=== PATIENT | female | born 1930 | race African-American/Black ===

== ENCOUNTER 2016-09-07 13:12 | Inpatient (IN) | payer OTHER ==
[2016-09-07 13:23] VITALS: BMI 21.7
--- NOTE | 2016-09-07 13:49 | PDOC ---
History of Present Illness <Abdoul Hernandez - Last Filed: 09/07/16 16:36> - General History Source: Patient Exam Limitations: No Limitations - History of Present Illness Initial Comments: 09/07/16 14:16 The patient is a 86 year old female with a significant past medical history of Anemia, Dementia, Diabetes, Constipation, HTN, HLD, Schizophrenia, who presents to the ED via EMS from [facility] s/p fall. Patient states she fell on her left hip and thinks it is broken. Patient denies loss of consciousness. Patient denies head trauma, back pain trauma, neck trauma. Patient denies fever, chills, nausea, vomiting, diarrhea. Patient is otherwise healthy and has no other complaints. <Anthony Vickers - Last Filed: 09/07/16 17:06> - General Chief Complaint: Injury Stated Complaint: FALL Past History - Past Medical History Anemia: Yes Dementia: Yes Diabetes: Yes GI Disorders: Yes (CONSTIPATION.) HTN: Yes Hypercholesterolemia: Yes Psychiatric Problems: Yes (SCHIZOPHRENIA.) Other medical history: DERMATITIS. - Psycho/Social/Smoking Cessation Hx Anxiety: No Suicidal Ideation: No Smoking Status: Yes Smoking History: Never smoked Have you smoked in the past 12 months: Yes Number of Cigarettes Smoked Daily: 0 'Breaking Loose' booklet given: 04/21/12 Hx Alcohol Use: No Drug/Substance Use Hx: No Substance Use Type: None <Abdoul Hernandez - Last Filed: 09/07/16 16:36> <Anthony Vickers - Last Filed: 09/07/16 17:06> - Past Medical History Allergies/Adverse Reactions: Allergies Allergy/AdvReac Type Severity Reaction Status Date / Time divalproex sodium Allergy Verified 09/07/16 13:15 [From [facility]] Home Medications: Ambulatory Orders Acetaminophen 650 mg PO Q6H PRN 09/07/16 Clonidine HCl [Clonidine HCl ER] 0.1 mg PO BID 09/07/16 Clopidogrel Bisulfate [Plavix -] 75 mg PO DAILY 09/07/16 Enalapril Maleate [Vasotec] 10 mg PO BID 09/07/16 Glipizide [Glucotrol Xl] 10 mg PO DAILY 09/07/16 Guaifenesin [Anne-Tussin] 200 mg PO Q4H PRN 09/07/16 Haloperidol [Haldol -] 5 mg PO BID 09/07/16 Insulin Regular, Human [Humulin R U-500 Kwikpen] 0 unit SQ QID 09/07/16 Magnesium Hydrox 2400MG/30Ml [Milk of Magnesia -] 30 ml PO PRN PRN 09/07/16 Metformin HCl [Metformin HCl ER] 1,000 mg PO BID 09/07/16 Multivitamin-Min/Iron/FA/Vit K [Multi-Day Plus Minerals Tablet] 1 each PO DAILY 09/07/16 Na Phos,M-B/Na Phos,Di-Ba [Fleet Enema] 133 ml RC PRN PRN 09/07/16 Petrolatum,White/Lanolin [Vitamin A & D Ointment] 454 gm TP TID 09/07/16 Quetiapine Fumarate [Seroquel -] 25 mg PO TID 09/07/16 Sennosides/Docusate Sodium [Senna Laxative Tablet] 2 each PO DAILY 09/07/16 Sertraline HCl [Zoloft] 25 mg PO DAILY 09/07/16 Simvastatin [Zocor -] 20 mg PO HS 09/07/16 Trihexyphenidyl HCl 2 mg PO DAILY 09/07/16 Review of Systems - Review of Systems Able to Perform ROS?: Yes Comments:: 09/07/16 14:16 GENERAL/CONSTITUTIONAL: No fever or chills. No weakness. HEAD, EYES, EARS, NOSE AND THROAT: No change in vision. No ear pain or discharge. No sore throat. CARDIOVASCULAR: No chest pain or shortness of breath. RESPIRATORY: No cough, wheezing, or hemoptysis. GASTROINTESTINAL: + LLQ pain. + nausea + vomiting. No diarrhea or constipation. GENITOURINARY: No dysuria, frequency, or change in urination. MUSCULOSKELETAL: No joint or muscle swelling or pain. No neck or back pain. SKIN: No rash NEUROLOGIC: No headache, vertigo, loss of consciousness, or change in strength/ sensation. ENDOCRINE: No increased thirst. No abnormal weight change. HEMATOLOGIC/LYMPHATIC: No anemia, easy bleeding, or history of blood clots. ALLERGIC/IMMUNOLOGIC: No hives or skin allergy. <Anthony Vickers - Last Filed: 09/07/16 17:06> *Physical Exam - Vital Signs Last Vital Signs Temp Pulse Resp BP Pulse Ox 97.6 F 88 18 140/61 98 09/07/16 13:15 09/07/16 13:15 09/07/16 13:15 09/07/16 13:15 09/07/16 13:15 <Abdoul Hernandez - Last Filed: 09/07/16 16:36> - Vital Signs Last Vital Signs Temp Pulse Resp BP Pulse Ox 97.6 F 88 18 140/61 98 09/07/16 13:15 09/07/16 13:15 09/07/16 13:15 09/07/16 13:15 09/07/16 13:15 - Physical Exam Comments: 09/07/16 14:17 GENERAL: Frail and elderly. She doesn't want to have surgery. Awake, alert, and fully oriented, in no acute distress. HEAD: No signs of trauma EYES: PERRLA, EOMI, sclera anicteric, conjunctiva clear ENT: Auricles normal inspection, hearing grossly normal, nares patent, oropharynx clear without exudates. Moist mucosa NECK: Normal ROM, supple, no lymphadenopathy, JVD, or masses LUNGS: Breath sounds equal, clear to auscultation bilaterally. No wheezes, and no crackles HEART: Regular rate and rhythm, normal S1 and S2, no murmurs, rubs or gallops ABDOMEN: Soft, nontender, normoactive bowel sounds. No guarding, no rebound. No masses HIP: Shortened externally rotated left hip. Pain with range of motion with left hip. EXTREMITIES: Normal range of motion, no edema. No clubbing or cyanosis. No cords, erythema, or tenderness NEUROLOGICAL: Cranial nerves II through XII grossly intact. Normal speech, normal gait SKIN: Warm, Dry, normal turgor, no rashes or lesions noted. <Anthony Vickers - Last Filed: 09/07/16 17:06> Heart Score/ECG Review - ECG Intrepretation Comment:: 09/07/16 13:54 Normal Sinus Rhythm with sinus arrhythmia, 77 bpm. Left axis deviation. Minimal voltage criteria for LVH, may be normal variant. Abnormal ECG. <Anthony Vickers - Last Filed: 09/07/16 17:06> ED Treatment Course - LABORATORY CBC & Chemistry Diagram: 09/07/16 14:07 09/07/16 14:07 <Abdoul Hernandez - Last Filed: 09/07/16 16:36> - LABORATORY CBC & Chemistry Diagram: 09/07/16 14:07 09/07/16 14:07 - RADIOLOGY Radiology Studies Ordered: 09/07/16 17:05 EXAM: CT of the brain without contrast HISTORY:Trauma. Previous cerebral vascular accident COMPARISON: None. FINDINGS:Serial transaxial images of the brain are available without intravenous contrast agent. Sagittal and coronal reformatted imaging is available. There is generalized moderately severe cortical atrophy with diffuse areas of decreased attenuation surrounding mildly prominent lateral ventricles most consistent with chronic small vessel disease. There is no midline shift or mass effect or acute hemorrhage. No abnormal fluid collections are seen. The mastoid air cells are well-aerated. Visible portions of the paranasal sinuses are well-aerated. The calvarium appears intact IMPRESSION: Findings of extensive chronic parenchymal changes in the brain THIS DOCUMENT HAS BEEN ELECTRONICALLY SIGNED Joey Freeman MD 09/07/2016 16:15 EST <Anthony Vickers - Last Filed: 09/07/16 17:06> Medical Decision Making - Medical Decision Making 09/07/16 17:[address] Rogel. Discussed case with Dr. Saravia. <Anthony Vickers - Last Filed: 09/07/16 17:06> *DC/Admit/Observation/Transfer - Discharge Dispostion Admit: Yes - Attestations Physician Attestion: 09/07/16 13:49 I, Dr. Abdoul Hernandez, attest that this document has been prepared under my direction and personally reviewed by me in its entirety. I further attest, that it accurately reflects all work, treatment, procedures and medical decision -making performed by me. <Abdoul Hernandez - Last Filed: 09/07/16 16:36> - Attestations Scribe Attestion: 09/07/16 14:24 Documentation prepared by Anthony Vickers, acting as medical equipment repair technician for Abdoul Hernandez MD/DO. <Anthony Vickers - Last Filed: 09/07/16 17:06> Diagnosis at time of Disposition: Renal insufficiency syndrome Intertrochanteric fracture of left hip Qualifiers: Encounter type: initial encounter Fracture type: closed Fracture alignment: nondisplaced Qualified Code(s): S72.145A - Nondisplaced intertrochanteric fracture of left femur, initial encounter for closed fracture CHF (congestive heart failure) Qualifiers: Congestive heart failure type: unspecified congestive heart failure type Congestive heart failure chronicity: chronic Qualified Code(s): I50.9 - Heart failure, unspecified - Discharge Dispostion Condition at time of disposition: Improved
[2016-09-07] MEDS ORDERED: morphine CARPU-JECT 4 MG/1 ML DISP.SYRIN IVPUSH ONE (13:52)
[2016-09-07] MEDS ORDERED: ONDANSETRON 4 MG/2 ML VIAL IVPUSH ONE (13:52)
[2016-09-07 14:33] LABS: BASOPHIL 0.9 % (0-2.0); EOSINOPHIL 3.7 % (0-4.5); MCH 20.8 pg (25.7-33.7); MCHC 30.9 g/dl (32.0-36.0); MEAN CELL VOLUME 67.1 fl (80-96); MEAN PLT VOLUME 9.7 fl (7.5-11.1); NEUTROPHILS 72.5 % (42.8-82.8); PLATELET COUNT 181 K/MM3 (134-434); RDW 16.5 % (11.6-15.6); WHITE BLOOD COUNT 5.3 K/mm3 (4.0-10.0)
[2016-09-07 14:45] LABS: INR 1.04 (0.82-1.09); PROTHROMBIN TIME (PATIENT) 11.5 SEC (9.98-11.88)
[2016-09-07 14:56] LABS: ALBUMIN 3.2 g/dl (3.4-5.0); ANION GAP 7 (8-16); BILIRUBIN,TOTAL 0.2 mg/dL (0.2-1.0); CO2 32 mmol/L (21-32); CREATININE 1.7 mg/dL (0.55-1.02); GLUCOSE,RANDOM 176 mg/dL (74-106); SGPT/ALT 16 U/L (12-78); TOT PROT 6.4 g/dl (6.4-8.2)
[2016-09-07 14:58] LABS: ALK PHOS 100 U/L (45-117); CPK 100 IU/L (26-192); TROPONIN I < 0.02 ng/ml (0.00-0.05)
[2016-09-07 15:01] LABS: SGOT/AST 23 U/L (15-37)
[2016-09-07 15:05] LABS: FRAGMENTED CELL 2+; HYPOCHROMIA 2+; MICROCYTOSIS 1+
--- NOTE | 2016-09-07 16:11 | EKG ---
Test Reason : Blood Pressure : / mmHG Vent. Rate : 077 BPM Atrial Rate : 077 BPM P-R Int : 146 ms QRS Dur : 082 ms QT Int : 402 ms P-R-T Axes : 038 -50 014 degrees QTc Int : 454 ms SINUS RHYTHM WITH SINUS ARRTHYMIA VS APCs. 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 Confirmed by JENNI CAMPBELL MD ([id number]) on 09/07/2016 4:11:29 PM Referred By: Confirmed By:JENNI CAMPBELL MD
[2016-09-07] MEDS ORDERED: ACETAMINOPHEN 325 MG TABLET (FP) PO PRN (16:57)
[2016-09-07] MEDS ORDERED: SODIUM CHLORIDE 0.45% 1,000 ML IV SCH (17:00)
[2016-09-07] MEDS: ATORVASTATIN CA 10 MG TABLET (FP) PO SCH (23:14)
[2016-09-07] MEDS: cloNIDine HCL 0.1 MG TABLET PO SCH (23:14)
[2016-09-07] MEDS: QUEtiapine FUMARATE 25 MG TABLET (FP) PO SCH (23:14)
[2016-09-07] MEDS ORDERED: cefTRIAXone SODIUM 1 GM VIAL ONE (23:18)
[2016-09-07] MEDS ORDERED: DEXTROSE 5%-WATER - 50 ML IVPB ONE (23:18)
[2016-09-07] MEDS: CEFTRIAXONE 1 GM in DEXTROSE 5%-WATER - 50 ML IVPB SCH (23:19)
[2016-09-07] MEDS: HALOPERIDOL 5 MG TABLET (FP) PO SCH (23:22)
[2016-09-07 23:52] LABS: URINE APPEARANCE CLEAR; URINE BILIRUBIN NEGATIVE (NEGATIVE); URINE BLOOD NEGATIVE (NEGATIVE); URINE COLOR YELLOW; URINE GLUCOSE (UA) NEGATIVE (NEGATIVE); URINE KETONE TRACE (NEGATIVE); URINE LEUK ESTERASE NEGATIVE (NEGATIVE); URINE NITRITE NEGATIVE (NEGATIVE); URINE UROBILINOGEN NEGATIVE mg/dL (0.2-1.0)
[2016-09-07 23:54] LABS: URINE PROTEIN 2+ (NEGATIVE)
[2016-09-07 23:58] LABS: URINE BACTERIA RARE /hpf (NONE SEEN); URINE HYALINE CAST 3 /lpf; URINE MUCUS RARE; URINE RBC 1 /hpf (0-3); URINE WBC 1 /hpf (3-5)
[2016-09-08] MEDS: oxyCODONE HCL 5 MG TABLET PO PRN ×2 (02:39→23:10)
[2016-09-08] MEDS: INSULIN SLIDING SCALE (NOVOLOG) 1 VIAL SQ SCH ×3 (06:35→17:29)
[2016-09-08] MEDS: QUEtiapine FUMARATE 25 MG TABLET (FP) PO SCH ×3 (06:35→21:09)
[2016-09-08 08:13] LABS: BASOPHIL 0.6 % (0-2.0); EOSINOPHIL 0.1 % (0-4.5); MCH 20.8 pg (25.7-33.7); MCHC 31.6 g/dl (32.0-36.0); MEAN CELL VOLUME 65.8 fl (80-96); MEAN PLT VOLUME 9.9 fl (7.5-11.1); PLATELET COUNT 140 K/MM3 (134-434); RDW 16.4 % (11.6-15.6); WHITE BLOOD COUNT 7.6 K/mm3 (4.0-10.0)
[2016-09-08 08:39] LABS: ALBUMIN 2.8 g/dl (3.4-5.0); ANION GAP 9 (8-16); BILIRUBIN,TOTAL 0.3 mg/dL (0.2-1.0); CALCIUM 8.2 mg/dL (8.5-10.1); CO2 29 mmol/L (21-32); CREATININE 1.9 mg/dL (0.55-1.02); GLUCOSE,RANDOM 144 mg/dL (74-106); SGPT/ALT 15 U/L (12-78); TOT PROT 5.2 g/dl (6.4-8.2)
[2016-09-08 08:40] LABS: ALK PHOS 73 U/L (45-117); SGOT/AST 19 U/L (15-37)
--- NOTE | 2016-09-08 09:08 | CON.ORTH ---
Consult Reason for Consultation:: left hip fx - Past Medical History ...: No - Alcohol/Substance Use Hx Alcohol Use: No - Smoking History Smoking history: Never smoked Have you smoked in the past 12 months: No Aproximately how many cigarettes per day: 0 Home Medications - Allergies Allergies/Adverse Reactions: Allergies Allergy/AdvReac Type Severity Reaction Status Date / Time divalproex sodium Allergy Verified 09/07/16 13:15 [From Depakote] - Home Medications Home Medications: Ambulatory Orders Acetaminophen 650 mg PO Q6H PRN 09/07/16 Clonidine HCl [Clonidine HCl ER] 0.1 mg PO BID 09/07/16 Clopidogrel Bisulfate [Plavix -] 75 mg PO DAILY 09/07/16 Enalapril Maleate [Vasotec] 10 mg PO BID 09/07/16 Glipizide [Glucotrol Xl] 10 mg PO DAILY 09/07/16 Guaifenesin [Anne-Tussin] 200 mg PO Q4H PRN 09/07/16 Haloperidol [Haldol -] 5 mg PO BID 09/07/16 Insulin Regular, Human [Humulin R U-500 Kwikpen] 0 unit SQ QID 09/07/16 Metformin HCl [Metformin HCl ER] 1,000 mg PO BID 09/07/16 Multivitamin-Min/Iron/FA/Vit K [Multi-Day Plus Minerals Tablet] 1 each PO DAILY 09/07/16 Na Phos,M-B/Na Phos,Di-Ba [Fleet Enema] 133 ml RC PRN PRN 09/07/16 Petrolatum,White/Lanolin [Vitamin A & D Ointment] 454 gm TP TID 09/07/16 Quetiapine Fumarate [Seroquel -] 25 mg PO TID 09/07/16 Sennosides/Docusate Sodium [Senna Laxative Tablet] 2 each PO DAILY 09/07/16 Sertraline HCl [Zoloft] 25 mg PO DAILY 09/07/16 Simvastatin [Zocor -] 20 mg PO HS 09/07/16 Trihexyphenidyl HCl 2 mg PO DAILY 09/07/16 Physical Exam for Ortho Vital Signs: Vital Signs Temperature 98.2 F 09/08/16 06:31 Pulse Rate 77 09/08/16 06:31 Respiratory Rate 18 09/08/16 06:31 Blood Pressure 124/70 09/08/16 06:31 O2 Sat by Pulse Oximetry (%) 98 09/08/16 02:32 Labs: CBC, BMP 09/08/16 06:40 09/08/16 06:40 INR, PTT INR 1.04 (0.82-1.09) 09/07/16 14:07 - Lower Extremity Hip: Yes: Left, Decreased ROM, Leg Externally Rotated, Leg Shortened, Pain, Swelling, Other (nvi) Imaging - Results X-ray: Report Reviewed, Image Reviewed Assessment/Plan 86 year old female with a significant past medical history of Anemia, Dementia, Diabetes, Constipation, HTN, HLD, Schizophrenia, who presents to the ED via EMS from [facility] s/p fall. a/p- left IT fx 2 units of PRBCs OR for left IM gamma nail once cleared surgical clearance NPO d/w Dr. Rogel
[2016-09-08] MEDS ORDERED: PT OWN MED DRAWER 7, Y5N ONE ×2 (09:48→14:31)
[2016-09-08] MEDS: cloNIDine HCL 0.1 MG TABLET PO SCH ×2 (09:56→21:09)
[2016-09-08] MEDS: SENNOSIDES/DOCUSATE COMBO (SENNA PLUS) TABLET (UD) PO SCH (09:56)
[2016-09-08] MEDS: SERTRALINE HCL 25 MG TABLET (FP) PO SCH (09:57)
--- NOTE | 2016-09-08 10:21 | HP ---
Admitting History and Physical - Primary Care Physician PCP: Selvin Lundy E - Admission Chief Complaint: s/p fall History of Present Illness: The patient is a 86 year old female with a significant past medical history of Anemia, Dementia, Diabetes, Constipation, HTN, HLD, Schizophrenia, who presents to the ED via EMS from [facility] s/p fall. Patient states she fell -- mechanical.- says she tripped pt found to have left hip fracture. pt is currently npo- scheduled for or later today. pt dropped h/h today-- transfusion ordered by ortho. Pt seen/ examined. chart reviewed. pt comfortable. answers simple questions. discussed with intermediate and pts pmd in intermediate. Pt has no family Patient denies loss of consciousness. Patient denies head trauma, back pain trauma, neck trauma. Patient denies fever, chills, nausea, vomiting, diarrhea. 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: Dementia Cardiovascular: Yes: HTN Renal/: Yes: Renal Inusuff ...: No Psych: Yes: Schizophrenia Endocrine: Yes: Diabetes Mellitus - Smoking History Smoking history: Never smoked Have you smoked in the past 12 months: No Aproximately how many cigarettes per day: 0 - Alcohol/Substance Use Hx Alcohol Use: No Home Medications - Allergies Allergies/Adverse Reactions: Allergies Allergy/AdvReac Type Severity Reaction Status Date / Time divalproex sodium Allergy Verified 09/07/16 13:15 [facility] - Home Medications Home Medications: Ambulatory Orders Acetaminophen 650 mg PO Q6H PRN 09/07/16 Clonidine HCl [Clonidine HCl ER] 0.1 mg PO BID 09/07/16 Clopidogrel Bisulfate [Plavix -] 75 mg PO DAILY 09/07/16 Enalapril Maleate [Vasotec] 10 mg PO BID 09/07/16 Glipizide [Glucotrol Xl] 10 mg PO DAILY 09/07/16 Guaifenesin [Anne-Tussin] 200 mg PO Q4H PRN 09/07/16 Haloperidol [Haldol -] 5 mg PO BID 09/07/16 Insulin Regular, Human [Humulin R U-500 Kwikpen] 0 unit SQ QID 09/07/16 Metformin HCl [Metformin HCl ER] 1,000 mg PO BID 09/07/16 Multivitamin-Min/Iron/FA/Vit K [Multi-Day Plus Minerals Tablet] 1 each PO DAILY 09/07/16 Na Phos,M-B/Na Phos,Di-Ba [Fleet Enema] 133 ml RC PRN PRN 09/07/16 Petrolatum,White/Lanolin [Vitamin A & D Ointment] 454 gm TP TID 09/07/16 Quetiapine Fumarate [Seroquel -] 25 mg PO TID 09/07/16 Sennosides/Docusate Sodium [Senna Laxative Tablet] 2 each PO DAILY 09/07/16 Sertraline HCl [Zoloft] 25 mg PO DAILY 09/07/16 Simvastatin [Zocor -] 20 mg PO HS 09/07/16 Trihexyphenidyl HCl 2 mg PO DAILY 09/07/16 Review of Systems Unable to obtain ROS, reason: see salamatof Physical Examination Vital Signs: Vital Signs Temperature 98.2 F 09/08/16 06:31 Pulse Rate 77 09/08/16 06:31 Respiratory Rate 18 09/08/16 06:31 Blood Pressure 124/70 09/08/16 06:31 O2 Sat by Pulse Oximetry (%) 98 09/08/16 02:32 Constitutional: Yes: No Distress, Calm Eyes: Yes: Conjunctiva Clear Neck: Yes: Supple, Trachea Midline Cardiovascular: Yes: Regular Rate and Rhythm Respiratory: Yes: CTA Bilaterally Gastrointestinal: Yes: Normal Bowel Sounds, Soft Edema: No Neurological: Yes: Alert Psychiatric: Yes: Alert Labs: CBC, BMP 09/08/16 06:40 09/08/16 06:40 Imaging - Results Chest X-ray: Report Reviewed X-ray: Report Reviewed EKG: Report Reviewed Problem List - Problems (1) Intertrochanteric fracture of left hip Code(s): S72.142A - DISPLACED INTERTROCHANTERIC FRACTURE OF LEFT FEMUR, INIT Qualifiers: Encounter type: initial encounter Fracture type: closed Fracture alignment: nondisplaced Qualified Code(s): S72.145A - Nondisplaced intertrochanteric fracture of left femur, initial encounter for closed fracture (2) Schizophrenia Code(s): F20.9 - SCHIZOPHRENIA, UNSPECIFIED (3) Diabetes Code(s): E11.9 - TYPE 2 DIABETES MELLITUS WITHOUT COMPLICATIONS (4) Chronic renal insufficiency, stage III (moderate) Code(s): N18.3 - CHRONIC KIDNEY DISEASE, STAGE 3 (MODERATE) (5) Anemia requiring transfusions Code(s): D64.9 - ANEMIA, UNSPECIFIED (6) Dementia Code(s): F03.90 - UNSPECIFIED DEMENTIA WITHOUT BEHAVIORAL DISTURBANCE (7) Coronary artery disease Code(s): I25.10 - ATHSCL HEART DISEASE OF [place] CORONARY ARTERY W/O ANG PCTRS Assessment/Plan transfuse. hold diabetic meds iv fluids- monitor bgm. hold chrissy- worsening renal insufficiency ortho on case post transfusion cbc. anticipate to or later today. medically stable for emergency procedure- moderate risk-- after transfusion. desmond for allan-operative management. will follow. discussed with nursing staff also.
[2016-09-08] MEDS: DEXTROSE 5%-0.45% SALINE 1,000 ML IV SCH ×2 (10:29→21:10)
[2016-09-08] MEDS ORDERED: FUROSEMIDE 40 MG/4 ML INJECTABLE VIAL IVPUSH SCH (14:15)
[2016-09-08] MEDS: TRIHEXYPHENIDYL HCL 2 MG TABLET PO SCH (14:27)
[2016-09-08] MEDS: HALOPERIDOL 5 MG TABLET (FP) PO SCH ×2 (14:27→21:09)
--- NOTE | 2016-09-08 17:43 | EKG ---
Test Reason : Blood Pressure : / mmHG Vent. Rate : 081 BPM Atrial Rate : 081 BPM P-R Int : 140 ms QRS Dur : 082 ms QT Int : 388 ms P-R-T Axes : -20 -40 -11 degrees QTc Int : 450 ms NORMAL SINUS RHYTHM WITH SINUS ARRHYTHMIA LEFT AXIS DEVIATION ABNORMAL ECG WHEN COMPARED WITH ECG OF 07-SEP-2016 13:43, T WAVE VARIATION Confirmed by JERAYM YOO MD ([id number]) on 09/08/2016 5:42:45 PM Referred By: Confirmed By:JERAMY YOO MD
[2016-09-08] MEDS ORDERED: INSULIN (NOVOLOG) ASPART 100 UNITS/ML 10ML VIAL ONE (17:54)
[2016-09-08] MEDS ORDERED: DEXTROSE 5%-WATER - 50 ML IVPB ONE (20:12)
[2016-09-08] MEDS ORDERED: cefTRIAXone SODIUM 1 GM VIAL ONE (20:12)
[2016-09-08] MEDS: ATORVASTATIN CA 10 MG TABLET (FP) PO SCH (21:09)
[2016-09-08] MEDS: CEFTRIAXONE 1 GM in DEXTROSE 5%-WATER - 50 ML IVPB SCH (21:09)
[2016-09-09 05:30] LABS: MCH 22.7 pg (25.7-33.7); MCHC 32.2 g/dl (32.0-36.0); MEAN CELL VOLUME 70.4 fl (80-96); MEAN PLT VOLUME 9.5 fl (7.5-11.1); PLATELET COUNT 125 K/MM3 (134-434); RDW 18.9 % (11.6-15.6); WHITE BLOOD COUNT 10.6 K/mm3 (4.0-10.0)
[2016-09-09] MEDS: QUEtiapine FUMARATE 25 MG TABLET (FP) PO SCH ×3 (06:00→22:25)
[2016-09-09] MEDS: DEXTROSE 5%-0.45% SALINE 1,000 ML IV SCH ×2 (06:02→16:30)
[2016-09-09] MEDS: INSULIN SLIDING SCALE (NOVOLOG) 1 VIAL SQ SCH ×3 (06:27→17:57)
[2016-09-09 07:46] LABS: BASOPHIL 0.4 % (0-2.0); MEAN CELL VOLUME 69.5 fl (80-96); MEAN PLT VOLUME 9.6 fl (7.5-11.1); NEUTROPHILS 76.5 % (42.8-82.8); PLATELET COUNT 121 K/MM3 (134-434); RDW 18.8 % (11.6-15.6); WHITE BLOOD COUNT 11.1 K/mm3 (4.0-10.0)
[2016-09-09 08:22] LABS: ALBUMIN 2.8 g/dl (3.4-5.0); ALK PHOS 81 U/L (45-117); ANION GAP 7 (8-16); BILIRUBIN,TOTAL 0.8 mg/dL (0.2-1.0); CALCIUM 7.8 mg/dL (8.5-10.1); CO2 29 mmol/L (21-32); CREATININE 1.6 mg/dL (0.55-1.02); GLUCOSE,RANDOM 229 mg/dL (74-106); SGOT/AST 24 U/L (15-37); SGPT/ALT 16 U/L (12-78); TOT PROT 5.5 g/dl (6.4-8.2)
[2016-09-09] MEDS ORDERED: PT OWN MED DRAWER 7, Y5N ONE (09:53)
[2016-09-09] MEDS: cloNIDine HCL 0.1 MG TABLET PO SCH ×2 (10:11→23:09)
--- NOTE | 2016-09-09 11:22 | PN ---
Progress Note, Physician Chief Complaint: Awaiting to go to OR Confused slight agitation no pain NPO - Current Medication List Current Medications: Active Medications Acetaminophen (Tylenol -) 650 mg PO Q6H PRN PRN Reason: pain/fever Atorvastatin Calcium (Lipitor -) 10 mg PO HS [facility] Last Admin: 09/08/16 21:09 Dose: 10 mg Clonidine (Catapres -) 0.1 mg PO BID [facility] Last Admin: 09/09/16 10:11 Dose: 0.1 mg Haloperidol (Haldol -) 5 mg PO BID [facility] Last Admin: 09/08/16 21:09 Dose: 5 mg Ceftriaxone Sodium 1 gm/ (Dextrose) 50 mls @ 100 mls/hr IVPB DAILY@2200 [facility] Last Admin: 09/08/16 21:09 Dose: 100 mls/hr Dextrose/Sodium Chloride (D5-1/2ns -) 1,000 mls @ 83 mls/hr IV ASDIR [facility] Last Admin: 09/09/16 06:02 Dose: 83 mls/hr Insulin Aspart (Novolog Vial Sliding Scale -) 1 vial SQ TIDAC [facility] PRN Reason: Protocol Last Admin: 09/09/16 06:27 Dose: 4 units Oxycodone HCl (Roxicodone -) 5 mg PO Q4H PRN PRN Reason: PAIN Last Admin: 09/08/16 23:10 Dose: 5 mg Quetiapine Fumarate (Seroquel -) 25 mg PO TID [facility] Last Admin: 09/09/16 06:00 Dose: 25 mg Senna/Docusate Sodium (Pericolace -) 2 tablet PO DAILY [facility] Last Admin: 09/08/16 09:56 Dose: 2 tablet Sertraline HCl (Zoloft -) 25 mg PO DAILY [facility] Last Admin: 09/08/16 09:57 Dose: 25 mg Trihexyphenidyl HCl (Artane -) 2 mg PO DAILY [facility] Last Admin: 09/08/16 14:27 Dose: 2 mg - Objective Vital Signs: Vital Signs Temperature 99.6 F 09/09/16 08:58 Pulse Rate 98 H 09/09/16 08:58 Respiratory Rate 18 09/09/16 08:58 Blood Pressure 139/79 09/09/16 08:58 O2 Sat by Pulse Oximetry (%) 96 09/08/16 20:23 Constitutional: Yes: No Distress Cardiovascular: Yes: Regular Rate and Rhythm Respiratory: Yes: CTA Bilaterally Gastrointestinal: Yes: Normal Bowel Sounds, Soft. No: Distention, Tenderness Edema: No Labs: CBC, BMP 09/09/16 06:00 09/09/16 06:00 INR, PTT INR 1.04 (0.82-1.09) 09/07/16 14:07 Problem List - Problems (1) Anemia requiring transfusions Code(s): D64.9 - ANEMIA, UNSPECIFIED (2) CHF (congestive heart failure) Code(s): I50.9 - HEART FAILURE, UNSPECIFIED Qualifiers: Congestive heart failure type: unspecified congestive heart failure type Congestive heart failure chronicity: chronic Qualified Code(s): I50.9 - Heart failure, unspecified (3) Chronic renal insufficiency, stage III (moderate) Code(s): N18.3 - CHRONIC KIDNEY DISEASE, STAGE 3 (MODERATE) (4) Coronary artery disease Code(s): I25.10 - ATHSCL HEART DISEASE OF [place] CORONARY ARTERY W/O ANG PCTRS (5) Dementia Code(s): F03.90 - UNSPECIFIED DEMENTIA WITHOUT BEHAVIORAL DISTURBANCE (6) Diabetes Code(s): E11.9 - TYPE 2 DIABETES MELLITUS WITHOUT COMPLICATIONS (7) Intertrochanteric fracture of left hip Code(s): S72.142A - DISPLACED INTERTROCHANTERIC FRACTURE OF LEFT FEMUR, INIT Qualifiers: Encounter type: initial encounter Fracture type: closed Fracture alignment: nondisplaced Qualified Code(s): S72.145A - Nondisplaced intertrochanteric fracture of left femur, initial encounter for closed fracture (8) Renal insufficiency syndrome Code(s): N28.9 - DISORDER OF KIDNEY AND URETER, UNSPECIFIED Assessment/Plan PLAN Keep NPO surgery today Cleared to undergo urgent procedure on Rocephin Urine cultures negative-- will continue antibiotics for now as pt is going to OR Hb better today Ativan IV as needed for agitation iv fluids
[2016-09-09] MEDS: TRIHEXYPHENIDYL HCL 2 MG TABLET PO SCH (12:18)
[2016-09-09] MEDS: SENNOSIDES/DOCUSATE COMBO (SENNA PLUS) TABLET (UD) PO SCH (12:18)
[2016-09-09] MEDS: HALOPERIDOL 5 MG TABLET (FP) PO SCH ×2 (12:18→22:25)
[2016-09-09] MEDS: SERTRALINE HCL 25 MG TABLET (FP) PO SCH (12:19)
[2016-09-09] MEDS ORDERED: PROPOFOL 20 ML ONE (13:07)
[2016-09-09] MEDS ORDERED: PHENYLEPHRINE HCL 10 MG/1 ML SINGLE DOSE VIAL ONE (13:09)
[2016-09-09] MEDS ORDERED: ceFAZolin SODIUM 1 GM VIAL ONE ×2 (13:17→22:19)
[2016-09-09] MEDS ORDERED: ceFAZolin SODIUM 1 GM VIAL IVPB ONE (13:17)
--- NOTE | 2016-09-09 14:21 | SPEC ---
DATE OF OPERATION: 09/09/2016 OPERATION: Left Gamma nailing. PREOPERATIVE DIAGNOSIS: Left intertrochanteric hip fracture. POSTOPERATIVE DIAGNOSIS: Left intertrochanteric hip fracture. SURGICAL ATTENDING: Josh Salcedo MD ANESTHESIA: LMA. CLOSURE: A short Gamma nail with appropriate interlocks;. 0 Vicryl, fascia; 2-0, subcutaneous; leslye, skin. ESTIMATED BLOOD LOSS: Negligible. COMPLICATIONS: None. CONDITION: To recovery room in stable condition. DESCRIPTION OF OPERATIVE PROCEDURE: The patient was taken to the operating room. LMA anesthesia was administered by the anesthesiologist. IV antibiotic prophylaxis was administered prior to the case. Patient was fastened to the fracture table with all prominences well padded. The left hip fracture was reduced and confirmation of excellent reduction from the AP and lateral planes was established using the image intensifier. A small 1-inch incision was made at the greater tip of the greater trochanter. Hemostasis was achieved with Bovie cautery. Sharp dissection was carried through the fascia. The K-wire was drilled from the tip of the greater trochanter past the fracture, into the intramedullary canal. Proper placement confirmed the AP and lateral planes by using the image intensifier. This was overreamed with a proximal reamer using the tissue protector to protect the soft tissue in the region. A short Gamma nail was then malleted down into place into the intramedullary canal to the appropriate level. Using the outrigger and a small stab incision laterally, a guidewire was drilled from one aspect of the femur through the femoral neck into the femoral head. Proper placement was confirmed of the AP and lateral planes using image intensifier. The wire was measured for length and was overreamed with a triple reamer and was screwed with the appropriate-length lag screw. Confirmation of appropriate depth was confirmed in the AP and lateral planes by using image intensifier. Traction was reduced. The compression device was used to compress the fracture and a screw was placed from above in a dynamic fashion. Again, using the outrigger and a small stab incision laterally, the distal locking screw was placed by drilling and an appropriate-sized screw. The outrigger was removed. Confirmation of excellent reduction was confirmed in the AP and lateral planes by using image intensifier with excellent position of the hardware. All incisions were irrigated with copious amounts of irrigation. The fascia was closed with 0 Vicryl, 2-0 for subcutaneous and 3-0 Monocryl subcuticular for skin. A sterile pressure dressing was applied. The patient was awakened from anesthesia and transferred to recovery room in stable condition. Tyrell [id number]
--- NOTE | 2016-09-09 15:28 | OP ---
Operative Note - Note: Operative Date: 09/09/16 ([facility]) Pre-Operative Diagnosis: left IT fx Operation: left IM gamma nail Post-Operative Diagnosis: Same as Pre-op Surgeon: Josh Salcedo Anesthesia: General Estimated Blood Loss (mls): 50 Operative Report Dictated: Yes
[2016-09-09] MEDS ORDERED: DEXTROSE 5%-WATER - 50 ML IVPB ONE ×2 (22:18→22:19)
[2016-09-09] MEDS ORDERED: cefTRIAXone SODIUM 1 GM VIAL ONE (22:18)
[2016-09-09] MEDS: oxyCODONE HCL 5 MG TABLET PO PRN (22:22)
[2016-09-09] MEDS: ATORVASTATIN CA 10 MG TABLET (FP) PO SCH (22:22)
[2016-09-09] MEDS: CEFAZOLIN 1 GM in DEXTROSE 5%-WATER - 50 ML IVPB SCH (22:26)
[2016-09-09] MEDS: CEFTRIAXONE 1 GM in DEXTROSE 5%-WATER - 50 ML IVPB SCH (22:26)
[2016-09-10] MEDS ORDERED: ceFAZolin SODIUM 1 GM VIAL ONE (02:13)
[2016-09-10] MEDS ORDERED: DEXTROSE 5%-WATER - 50 ML IVPB ONE ×2 (02:14→21:14)
[2016-09-10] MEDS: CEFAZOLIN 1 GM in DEXTROSE 5%-WATER - 50 ML IVPB SCH (02:18)
[2016-09-10] MEDS: INSULIN SLIDING SCALE (NOVOLOG) 1 VIAL SQ SCH ×3 (06:52→18:07)
[2016-09-10] MEDS: QUEtiapine FUMARATE 25 MG TABLET (FP) PO SCH ×4 (06:52→21:16)
[2016-09-10] MEDS ORDERED: DEXTROSE 5%-0.45% SALINE 1,000 ML IV SCH (08:02)
[2016-09-10] MEDS ORDERED: LORazepam 2 MG/ML SDV VIAL IVPUSH PRN (08:02)
[2016-09-10 08:41] LABS: MCH 22.6 pg (25.7-33.7); MCHC 31.8 g/dl (32.0-36.0); MEAN CELL VOLUME 70.9 fl (80-96); MEAN PLT VOLUME 10.3 fl (7.5-11.1); PLATELET COUNT 118 K/MM3 (134-434); RDW 19.5 % (11.6-15.6); WHITE BLOOD COUNT 11.1 K/mm3 (4.0-10.0)
[2016-09-10 09:10] LABS: ANION GAP 6 (8-16); CALCIUM 7.6 mg/dL (8.5-10.1); CO2 30 mmol/L (21-32)
[2016-09-10] MEDS ORDERED: PT OWN MED DRAWER 7, Y5N ONE (09:12)
[2016-09-10 09:19] LABS: CREATININE 1.6 mg/dL (0.55-1.02)
[2016-09-10] MEDS: cloNIDine HCL 0.1 MG TABLET PO SCH ×2 (09:19→21:15)
[2016-09-10] MEDS: TRIHEXYPHENIDYL HCL 2 MG TABLET PO SCH (09:19)
[2016-09-10] MEDS: HALOPERIDOL 5 MG TABLET (FP) PO SCH ×2 (09:19→21:15)
[2016-09-10] MEDS: SERTRALINE HCL 25 MG TABLET (FP) PO SCH (09:20)
[2016-09-10] MEDS: SENNOSIDES/DOCUSATE COMBO (SENNA PLUS) TABLET (UD) PO SCH (09:20)
[2016-09-10 09:31] LABS: GLUCOSE,RANDOM 313 mg/dL (74-106)
[2016-09-10] MEDS ORDERED: ENOXAPARIN NA (PORCINE) 30 MG/0.3 ML DISP.SYRIN SQ SCH (10:00)
[2016-09-10] MEDS ORDERED: ENOXAPARIN NA (PORCINE) 40 MG/0.4 ML DISP.SYRIN SQ SCH (10:00)
--- NOTE | 2016-09-10 10:36 | PN ---
Progress Note (short form) - Note Progress Note: AVSS COMFORTABLE BANDAGES DRY AND INTACT CALF SOFT AND NT NVI HCT= 25 IMP: DOING WELL PLAN: OOB, PT, DC PLANNING
--- NOTE | 2016-09-10 10:47 | PN ---
Progress Note, Physician Chief Complaint: s/p left gamma nailing- POD#1 no distress logan removed this morning - Current Medication List Current Medications: Active Medications Acetaminophen (Tylenol -) 650 mg PO Q6H PRN PRN Reason: pain/fever Atorvastatin Calcium (Lipitor -) 10 mg PO HS [facility] Clonidine (Catapres -) 0.1 mg PO BID [facility] Last Admin: 09/10/16 09:19 Dose: 0.1 mg Enoxaparin Sodium (Lovenox -) 30 mg SQ DAILY [facility] Haloperidol (Haldol -) 5 mg PO BID [facility] Last Admin: 09/10/16 09:19 Dose: 5 mg Ceftriaxone Sodium 1 gm/ (Dextrose) 50 mls @ 100 mls/hr IVPB DAILY@2200 [facility] Insulin Aspart (Novolog Vial Sliding Scale -) 1 vial SQ TIDAC [facility] PRN Reason: Protocol Lorazepam (Ativan Injection -) 0.5 mg IVPUSH Q6H PRN PRN Reason: AGITATION Oxycodone HCl (Roxicodone -) 5 mg PO Q4H PRN PRN Reason: PAIN Quetiapine Fumarate (Seroquel -) 25 mg PO TID [facility] Senna/Docusate Sodium (Pericolace -) 2 tablet PO DAILY [facility] Last Admin: 09/10/16 09:20 Dose: 2 tablet Sertraline HCl (Zoloft -) 25 mg PO DAILY [facility] Last Admin: 09/10/16 09:20 Dose: 25 mg Trihexyphenidyl HCl (Artane -) 2 mg PO DAILY [facility] Last Admin: 09/10/16 09:19 Dose: 2 mg - Objective Vital Signs: Vital Signs Temperature 97.6 F 09/10/16 06:00 Pulse Rate 87 09/10/16 06:00 Respiratory Rate 18 09/10/16 06:00 Blood Pressure 138/63 09/10/16 06:00 O2 Sat by Pulse Oximetry (%) 98 09/09/16 20:28 Constitutional: Yes: No Distress, Calm Cardiovascular: Yes: Regular Rate and Rhythm Respiratory: Yes: CTA Bilaterally Gastrointestinal: Yes: Normal Bowel Sounds, Soft. No: Tenderness Extremities: Yes: Other (left hip dressing intact) Edema: No Labs: CBC, BMP 09/10/16 07:05 09/10/16 07:05 INR, PTT INR 1.04 (0.82-1.09) 07/30/17 14:07 Problem List - Problems (1) Anemia requiring transfusions Code(s): D64.9 - ANEMIA, UNSPECIFIED (2) CHF (congestive heart failure) Code(s): I50.9 - HEART FAILURE, UNSPECIFIED Qualifiers: Congestive heart failure type: unspecified congestive heart failure type Congestive heart failure chronicity: chronic Qualified Code(s): I50.9 - Heart failure, unspecified (3) Chronic renal insufficiency, stage III (moderate) Code(s): N18.3 - CHRONIC KIDNEY DISEASE, STAGE 3 (MODERATE) (4) Coronary artery disease Code(s): I25.10 - ATHSCL HEART DISEASE OF [place] CORONARY ARTERY W/O ANG PCTRS (5) Dementia Code(s): F03.90 - UNSPECIFIED DEMENTIA WITHOUT BEHAVIORAL DISTURBANCE (6) Diabetes Code(s): E11.9 - TYPE 2 DIABETES MELLITUS WITHOUT COMPLICATIONS (7) Intertrochanteric fracture of left hip Code(s): S72.142A - DISPLACED INTERTROCHANTERIC FRACTURE OF LEFT FEMUR, INIT Qualifiers: Encounter type: initial encounter Fracture type: closed Fracture alignment: nondisplaced Qualified Code(s): S72.145A - Nondisplaced intertrochanteric fracture of left femur, initial encounter for closed fracture (8) Renal insufficiency syndrome Code(s): N28.9 - DISORDER OF KIDNEY AND URETER, UNSPECIFIED Assessment/Plan PLAN dc iv fluids PT eval check urine output on Rocephin repeat CBC Ativan IV as needed for agitation Lovenox sc for DVT prophylaxis
[2016-09-10 11:33] LABS: ARTERIAL BLOOD GAS BASE EXCESS 1.7 meq/l (-2-2); ARTERIAL BLOOD GAS pH 7.41 (7.35-7.45)
[2016-09-10 11:35] LABS: ALLENS TEST POSITIVE; ART PUNCT SITE RIGHT RADIAL; LPM/O2% 5 LPM; PT. ON O2? yes; TYPE OF O2 nasal cannula
--- NOTE | 2016-09-10 11:43 | RAPID ---
Physical Examination Vital Signs: Vital Signs Temperature 97.6 F 09/10/16 06:00 Pulse Rate 87 09/10/16 06:00 Respiratory Rate 18 09/10/16 06:00 Blood Pressure 138/63 09/10/16 06:00 O2 Sat by Pulse Oximetry (%) 98 09/09/16 20:28 Labs: CBC, BMP 09/10/16 07:05 09/10/16 07:05 Rapid Response - Rapid Response Assessment: Rapid Response called. Patient was with physical therapy and was being stood up with max assistance. She then sat down and the physical therapist reported she was unresponsive. It was reported that patient had a blank stare but had a pulse and was breathing on her own without any oxygen. Patient was then placed in bed and a rapid response was called. When examining the patient she initially had no verbal response but was awake. Three minutes later patient was verbally responding. She has severe dementia at baseline, as per primary care physician. VITALS: BP: 112/66 HR: 97 02 saturation: 95% on 4L NC Glucose: 260 PE EXAM -GENERAL: Awake and confused. -Heart: RRR. -LUNGS: CTA bilaterally -ABDOMEN: Soft, no tenderness upon palpation, nondistended -EXTREMITIES: Left hip dressing c/d/i ASSESSMENT and PLAN Vasovagal Syncope -Oxygen started -PRBC's pending -Left Hip CT pending -ABG ordered -Dr. Yamel Saravia contacted and discussed case, she will take over from here
--- NOTE | 2016-09-10 12:35 | PN ---
Progress Note (short form) - Note Progress Note: Rapid response was called for this pt who was not responsive when she got up for PT Spoke with hospitalists and residents Pt now in bed, awake. was unresponsive for about a minute she is now fighting with staff, baseline confused and demented- at baseline currently Vitals noted left thigh-- hematoma+-- will check CT thigh and CT head ABG noted Problem List - Problems (1) Anemia requiring transfusions Code(s): D64.9 - ANEMIA, UNSPECIFIED (2) CHF (congestive heart failure) Code(s): I50.9 - HEART FAILURE, UNSPECIFIED Qualifiers: Congestive heart failure type: unspecified congestive heart failure type Congestive heart failure chronicity: chronic Qualified Code(s): I50.9 - Heart failure, unspecified (3) Chronic renal insufficiency, stage III (moderate) Code(s): N18.3 - CHRONIC KIDNEY DISEASE, STAGE 3 (MODERATE) (4) Coronary artery disease Code(s): I25.10 - ATHSCL HEART DISEASE OF [place] CORONARY ARTERY W/O ANG PCTRS (5) Dementia Code(s): F03.90 - UNSPECIFIED DEMENTIA WITHOUT BEHAVIORAL DISTURBANCE (6) Diabetes Code(s): E11.9 - TYPE 2 DIABETES MELLITUS WITHOUT COMPLICATIONS (7) Intertrochanteric fracture of left hip Code(s): S72.142A - DISPLACED INTERTROCHANTERIC FRACTURE OF LEFT FEMUR, INIT Qualifiers: Encounter type: initial encounter Fracture type: closed Fracture alignment: nondisplaced Qualified Code(s): S72.145A - Nondisplaced intertrochanteric fracture of left femur, initial encounter for closed fracture (8) Renal insufficiency syndrome Code(s): N28.9 - DISORDER OF KIDNEY AND URETER, UNSPECIFIED
--- NOTE | 2016-09-10 13:01 | PN ---
Progress Note (short form) - Note Progress Note: Post op day#1.S/P Left hip gamma nailing under [place] uneventful.Patient stable but had a rapid response called on her tis afternoon for which she is being evaluated.No any anesthesia related problem.Patient DC from the anesthesia care.
[2016-09-10 13:38] LABS: MCH 22.4 pg (25.7-33.7); MCHC 31.4 g/dl (32.0-36.0); MEAN CELL VOLUME 71.3 fl (80-96); MEAN PLT VOLUME 9.6 fl (7.5-11.1); PLATELET COUNT 132 K/MM3 (134-434); RDW 19.7 % (11.6-15.6); WHITE BLOOD COUNT 14.1 K/mm3 (4.0-10.0)
[2016-09-10] MEDS: ENOXAPARIN NA (PORCINE) 30 MG/0.3 ML DISP.SYRIN SQ SCH (13:46)
[2016-09-10] MEDS: oxyCODONE HCL 5 MG TABLET PO PRN (19:49)
[2016-09-10] MEDS: ACETAMINOPHEN 325 MG TABLET (FP) PO PRN (19:50)
[2016-09-10] MEDS ORDERED: cefTRIAXone SODIUM 1 GM VIAL ONE (21:13)
[2016-09-10] MEDS: ATORVASTATIN CA 10 MG TABLET (FP) PO SCH (21:16)
[2016-09-10] MEDS ORDERED: CEFTRIAXONE 1 GM in DEXTROSE 5%-WATER - 50 ML IVPB SCH (22:00)
[2016-09-11] MEDS: QUEtiapine FUMARATE 25 MG TABLET (FP) PO SCH ×3 (05:40→21:59)
[2016-09-11] MEDS: INSULIN SLIDING SCALE (NOVOLOG) 1 VIAL SQ SCH ×3 (06:35→17:54)
[2016-09-11 07:51] LABS: MCH 22.9 pg (25.7-33.7); MCHC 31.7 g/dl (32.0-36.0); MEAN CELL VOLUME 72.2 fl (80-96); MEAN PLT VOLUME 10.1 fl (7.5-11.1); PLATELET COUNT 117 K/MM3 (134-434); RDW 19.9 % (11.6-15.6); WHITE BLOOD COUNT 10.3 K/mm3 (4.0-10.0)
[2016-09-11] MEDS ORDERED: FUROSEMIDE 40 MG/4 ML INJECTABLE VIAL IVPB SCH (09:03)
[2016-09-11] MEDS ORDERED: PT OWN MED DRAWER 7, Y5N ONE (09:26)
[2016-09-11] MEDS: SENNOSIDES/DOCUSATE COMBO (SENNA PLUS) TABLET (UD) PO SCH (09:28)
[2016-09-11] MEDS: ENOXAPARIN NA (PORCINE) 30 MG/0.3 ML DISP.SYRIN SQ SCH (09:28)
[2016-09-11] MEDS: SERTRALINE HCL 25 MG TABLET (FP) PO SCH (09:29)
[2016-09-11] MEDS: TRIHEXYPHENIDYL HCL 2 MG TABLET PO SCH (09:31)
[2016-09-11] MEDS: cloNIDine HCL 0.1 MG TABLET PO SCH ×2 (09:31→22:00)
[2016-09-11] MEDS: HALOPERIDOL 5 MG TABLET (FP) PO SCH ×2 (09:38→22:00)
--- NOTE | 2016-09-11 10:34 | PN ---
Progress Note (short form) - Note Progress Note: Ortho Pt seen and examined s/p left IM gamma nail Selected Entries 09/11/16 08:15 Temperature 98.4 F Pulse Rate 101 H Respiratory 20 Rate Blood Pressure 156/72 Laboratory Tests 09/11/16 06:00 WBC 10.3 H Hgb 7.7 L Hct 24.2 L Plt Count 117 L dressing c/d/i, calf soft, nt nvi a/p will be transfused PT if able dvt ppx pain control d/c planning
--- NOTE | 2016-09-11 11:19 | PN ---
Progress Note, Physician Chief Complaint: s/p left gamma nailing- POD#2 no distress History of Present Illness: no distress confused - Current Medication List Current Medications: Active Medications Acetaminophen (Tylenol -) 650 mg PO Q6H PRN PRN Reason: pain/fever Last Admin: 09/10/16 19:50 Dose: 650 mg Atorvastatin Calcium (Lipitor -) 10 mg PO HS [facility] Last Admin: 09/10/16 21:16 Dose: 10 mg Clonidine (Catapres -) 0.1 mg PO BID [facility] Last Admin: 09/11/16 09:31 Dose: 0.1 mg Enoxaparin Sodium (Lovenox -) 30 mg SQ DAILY [facility] Last Admin: 09/11/16 09:28 Dose: 30 mg Furosemide (Lasix Injection -) 40 mg IVPB [employer] [facility] Stop: 09/11/16 18:00 Haloperidol (Haldol -) 2.5 mg PO BID [facility] Last Admin: 09/11/16 09:38 Dose: 2.5 mg Ceftriaxone Sodium 1 gm/ (Dextrose) 50 mls @ 100 mls/hr IVPB DAILY@2200 [facility] Last Admin: 09/10/16 21:16 Dose: 100 mls/hr Insulin Aspart (Novolog Vial Sliding Scale -) 1 vial SQ TIDAC [facility] PRN Reason: Protocol Last Admin: 09/11/16 06:35 Dose: 2 units Lorazepam (Ativan Injection -) 0.5 mg IVPUSH Q6H PRN PRN Reason: AGITATION Oxycodone HCl (Roxicodone -) 5 mg PO Q4H PRN PRN Reason: PAIN Last Admin: 09/10/16 19:49 Dose: 5 mg Quetiapine Fumarate (Seroquel -) 25 mg PO BID [facility] Last Admin: 09/11/16 09:38 Dose: 25 mg Senna/Docusate Sodium (Pericolace -) 2 tablet PO DAILY [facility] Last Admin: 09/11/16 09:28 Dose: 2 tablet Sertraline HCl (Zoloft -) 25 mg PO DAILY [facility] Last Admin: 09/11/16 09:29 Dose: 25 mg Trihexyphenidyl HCl (Artane -) 2 mg PO DAILY [facility] Last Admin: 09/11/16 09:31 Dose: 2 mg - Objective Vital Signs: Vital Signs Temperature 98.4 F 09/11/16 08:15 Pulse Rate 101 H 09/11/16 08:15 Respiratory Rate 20 09/11/16 08:15 Blood Pressure 156/72 09/11/16 08:15 O2 Sat by Pulse Oximetry (%) 98 09/10/16 21:00 Constitutional: Yes: No Distress Cardiovascular: Yes: Regular Rate and Rhythm Respiratory: Yes: Diminished Gastrointestinal: Yes: Normal Bowel Sounds, Soft. No: Distention, Tenderness Extremities: Yes: Other (left thigh edema, erythema and warm, tender+) Edema: Yes Labs: CBC, BMP 09/11/16 06:00 09/10/16 07:05 INR, PTT INR 1.04 (0.82-1.09) 09/07/16 14:07 Problem List - Problems (1) Anemia requiring transfusions Code(s): D64.9 - ANEMIA, UNSPECIFIED (2) CHF (congestive heart failure) Code(s): I50.9 - HEART FAILURE, UNSPECIFIED Qualifiers: Congestive heart failure type: unspecified congestive heart failure type Congestive heart failure chronicity: chronic Qualified Code(s): I50.9 - Heart failure, unspecified (3) Chronic renal insufficiency, stage III (moderate) Code(s): N18.3 - CHRONIC KIDNEY DISEASE, STAGE 3 (MODERATE) (4) Coronary artery disease Code(s): I25.10 - ATHSCL HEART DISEASE OF [place] CORONARY ARTERY W/O ANG PCTRS (5) Dementia Code(s): F03.90 - UNSPECIFIED DEMENTIA WITHOUT BEHAVIORAL DISTURBANCE (6) Diabetes Code(s): E11.9 - TYPE 2 DIABETES MELLITUS WITHOUT COMPLICATIONS (7) Intertrochanteric fracture of left hip Code(s): S72.142A - DISPLACED INTERTROCHANTERIC FRACTURE OF LEFT FEMUR, INIT Qualifiers: Encounter type: initial encounter Fracture type: closed Fracture alignment: nondisplaced Qualified Code(s): S72.145A - Nondisplaced intertrochanteric fracture of left femur, initial encounter for closed fracture (8) Renal insufficiency syndrome Code(s): N28.9 - DISORDER OF KIDNEY AND URETER, UNSPECIFIED Assessment/Plan PLAN Anemia noted-- transfuse today CT leg-- no hematoma, but soft tissue swelling ?? cellulitis-- no elevated WBC, afebrile-- continue with Ancef for now dc Ceftriaxone check stool guaic
[2016-09-11] MEDS ORDERED: BISACODYL 10 MG SUPP.RECT RC PRN (12:09)
[2016-09-11] MEDS: POLYETHYLENE GLYCOL 3350 119 GM BTL PO SCH (12:30)
[2016-09-11] MEDS ORDERED: ceFAZolin SODIUM 1 GM VIAL ONE (17:34)
[2016-09-11] MEDS ORDERED: DEXTROSE 5%-WATER - 50 ML IVPB ONE (17:34)
[2016-09-11] MEDS: CEFAZOLIN 1 GM in DEXTROSE 5%-WATER - 50 ML IVPB SCH (17:55)
[2016-09-11] MEDS: ACETAMINOPHEN 325 MG TABLET (FP) PO PRN (18:47)
[2016-09-11] MEDS: ATORVASTATIN CA 10 MG TABLET (FP) PO SCH (21:59)
[2016-09-11] MEDS: oxyCODONE HCL 5 MG TABLET PO PRN (22:00)
[2016-09-12] MEDS ORDERED: ceFAZolin SODIUM 1 GM VIAL ONE ×3 (01:28→17:19)
[2016-09-12] MEDS ORDERED: DEXTROSE 5%-WATER - 50 ML IVPB ONE ×3 (01:28→17:19)
[2016-09-12] MEDS: CEFAZOLIN 1 GM in DEXTROSE 5%-WATER - 50 ML IVPB SCH ×3 (02:54→17:51)
[2016-09-12] MEDS: INSULIN SLIDING SCALE (NOVOLOG) 1 VIAL SQ SCH ×3 (06:10→16:54)
[2016-09-12] MEDS ORDERED: INSULIN (NOVOLOG) ASPART 100 UNITS/ML 10ML VIAL ONE ×2 (06:31→11:21)
[2016-09-12 06:51] LABS: MCH 24.9 pg (25.7-33.7); MCHC 32.9 g/dl (32.0-36.0); MEAN CELL VOLUME 75.8 fl (80-96); MEAN PLT VOLUME 9.8 fl (7.5-11.1); PLATELET COUNT 145 K/MM3 (134-434); RDW 20.3 % (11.6-15.6); WHITE BLOOD COUNT 10.4 K/mm3 (4.0-10.0)
[2016-09-12] MEDS: oxyCODONE HCL 5 MG TABLET PO PRN ×2 (07:40→21:51)
[2016-09-12] MEDS ORDERED: PT OWN MED DRAWER 7, Y5N ONE (09:55)
--- NOTE | 2016-09-12 10:05 | PN ---
Progress Note (short form) - Note Progress Note: pt seen/ examined. chart reviewed. pt awake/ no distress. poor historian confused afebrile Vital Signs Temp 98.6 F 09/12/16 05:00 Pulse 85 09/12/16 05:00 Resp 16 09/12/16 05:00 BP 132/73 09/12/16 05:00 Pulse Ox 95 09/11/16 21:00 Intake & Output 09/11/16 09/11/16 09/12/16 11:59 23:59 11:59 Intake Total 450 400 Balance 450 400 Intake: IVPB 100 50 Packed Cells 350 350 Other: Voiding Method Incontinent Incontinent # Unmeasured Voids Void 1 1 Bowel Movement Yes Active Medications Acetaminophen (Tylenol -) 650 mg PO Q6H PRN PRN Reason: pain/fever Last Admin: 09/11/16 18:47 Dose: 650 mg Atorvastatin Calcium (Lipitor -) 10 mg PO HS [facility] Last Admin: 09/11/16 21:59 Dose: 10 mg Bisacodyl (Dulcolax Suppository -) 10 mg RC DAILY PRN PRN Reason: CONSTIPATION Last Admin: 09/11/16 18:48 Dose: 10 mg Clonidine (Catapres -) 0.1 mg PO BID [facility] Last Admin: 09/11/16 22:00 Dose: 0.1 mg Enoxaparin Sodium (Lovenox -) 30 mg SQ DAILY [facility] Last Admin: 09/11/16 09:28 Dose: 30 mg Haloperidol (Haldol -) 2.5 mg PO BID [facility] Last Admin: 09/11/16 22:00 Dose: 2.5 mg Cefazolin Sodium 1 gm/ (Dextrose) 50 mls @ 100 mls/hr IVPB Q8H-IV [facility] Last Admin: 09/12/16 02:54 Dose: 100 mls/hr Insulin Aspart (Novolog Vial Sliding Scale -) 1 vial SQ TIDAC [facility] PRN Reason: Protocol Last Admin: 09/12/16 06:10 Dose: 2 units Insulin Detemir (Levemir Vial) 8 units SQ HS [facility] Lorazepam (Ativan Injection -) 0.5 mg IVPUSH Q6H PRN PRN Reason: AGITATION Oxycodone HCl (Roxicodone -) 5 mg PO Q4H PRN PRN Reason: PAIN Last Admin: 09/12/16 07:40 Dose: 5 mg Polyethylene Glycol (Miralax (For Daily Use) -) 17 gm PO DAILY [facility] Last Admin: 09/11/16 12:30 Dose: 17 grams Quetiapine Fumarate (Seroquel -) 25 mg PO BID [facility] Last Admin: 09/11/16 21:59 Dose: 25 mg Senna/Docusate Sodium (Pericolace -) 2 tablet PO DAILY [facility] Last Admin: 09/11/16 09:28 Dose: 2 tablet Sertraline HCl (Zoloft -) 25 mg PO DAILY [facility] Last Admin: 09/11/16 09:29 Dose: 25 mg Trihexyphenidyl HCl (Artane -) 2 mg PO DAILY [facility] Last Admin: 09/11/16 09:31 Dose: 2 mg CBC, BMP 09/12/16 06:10 09/10/16 07:05 ct scans -- reviewed Physical Exam. Constitutional: Yes: No Distress/ confused . Cardiovascular: Yes: Regular Rate and Rhythm Respiratory: Yes: Diminished Gastrointestinal: Yes: Normal Bowel Sounds, Soft. No: Distention, Tenderness Extremities: Yes: Other (left thigh edema, erythema ) Edema: trace Problem List - Problems (1) Anemia requiring transfusions Code(s): D64.9 - ANEMIA, UNSPECIFIED (2) CHF (congestive heart failure) Code(s): I50.9 - HEART FAILURE, UNSPECIFIED Qualifiers: Congestive heart failure type: unspecified congestive heart failure type Congestive heart failure chronicity: chronic Qualified Code(s): I50.9 - Heart failure, unspecified (3) Chronic renal insufficiency, stage III (moderate) Code(s): N18.3 - CHRONIC KIDNEY DISEASE, STAGE 3 (MODERATE) (4) Coronary artery disease Code(s): I25.10 - ATHSCL HEART DISEASE OF [place] CORONARY ARTERY W/O ANG PCTRS (5) Dementia Code(s): F03.90 - UNSPECIFIED DEMENTIA WITHOUT BEHAVIORAL DISTURBANCE (6) Diabetes Code(s): E11.9 - TYPE 2 DIABETES MELLITUS WITHOUT COMPLICATIONS (7) Intertrochanteric fracture of left hip Code(s): S72.142A - DISPLACED INTERTROCHANTERIC FRACTURE OF LEFT FEMUR, INIT Qualifiers: Encounter type: initial encounter Fracture type: closed Fracture alignment: nondisplaced Qualified Code(s): S72.145A - Nondisplaced intertrochanteric fracture of left femur, initial encounter for closed fracture (8) Renal insufficiency syndrome Code(s): N28.9 - DISORDER OF KIDNEY AND URETER, UNSPECIFIED Assessment/Plan clinically stable h/h stable oob- chair s/p rapid response yesterday add basal insulin No obvious bleeding-- sob pending f/u cbc/ electrolytes will follow Problem List - Problems (1) Intertrochanteric fracture of left hip Code(s): S72.142A - DISPLACED INTERTROCHANTERIC FRACTURE OF LEFT FEMUR, INIT Qualifiers: Encounter type: initial encounter Fracture type: closed Fracture alignment: nondisplaced Qualified Code(s): S72.145A - Nondisplaced intertrochanteric fracture of left femur, initial encounter for closed fracture (2) Schizophrenia Code(s): F20.9 - SCHIZOPHRENIA, UNSPECIFIED (3) Diabetes Code(s): E11.9 - TYPE 2 DIABETES MELLITUS WITHOUT COMPLICATIONS (4) Chronic renal insufficiency, stage III (moderate) Code(s): N18.3 - CHRONIC KIDNEY DISEASE, STAGE 3 (MODERATE) (5) Anemia requiring transfusions Code(s): D64.9 - ANEMIA, UNSPECIFIED (6) Dementia Code(s): F03.90 - UNSPECIFIED DEMENTIA WITHOUT BEHAVIORAL DISTURBANCE (7) Coronary artery disease Code(s): I25.10 - ATHSCL HEART DISEASE OF [place] CORONARY ARTERY W/O ANG PCTRS
[2016-09-12] MEDS: ENOXAPARIN NA (PORCINE) 30 MG/0.3 ML DISP.SYRIN SQ SCH (10:09)
[2016-09-12] MEDS: QUEtiapine FUMARATE 25 MG TABLET (FP) PO SCH ×2 (10:10→21:53)
[2016-09-12] MEDS: cloNIDine HCL 0.1 MG TABLET PO SCH ×2 (10:10→21:53)
[2016-09-12] MEDS: SENNOSIDES/DOCUSATE COMBO (SENNA PLUS) TABLET (UD) PO SCH (10:10)
[2016-09-12] MEDS: HALOPERIDOL 5 MG TABLET (FP) PO SCH ×2 (10:11→21:52)
[2016-09-12] MEDS: SERTRALINE HCL 25 MG TABLET (FP) PO SCH (10:11)
[2016-09-12] MEDS: TRIHEXYPHENIDYL HCL 2 MG TABLET PO SCH (10:11)
[2016-09-12] MEDS: POLYETHYLENE GLYCOL 3350 119 GM BTL PO SCH (10:13)
--- NOTE | 2016-09-12 11:08 | PN ---
Progress Note (short form) - Note Progress Note: Ortho Pt seen and examined s/p left IM gamma nail Selected Entries 09/12/16 05:00 Temperature 98.6 F Pulse Rate 85 Respiratory 16 Rate Blood Pressure 132/73 Laboratory Tests 09/12/16 06:10 WBC 10.4 H Hgb 10.1 L D Hct 30.7 L D Plt Count 145 D dressing c/d/i, calf soft, nt nvi a/p PT if able dvt ppx pain control d/c planning
[2016-09-12] MEDS: ATORVASTATIN CA 10 MG TABLET (FP) PO SCH (21:52)
[2016-09-12] MEDS ORDERED: INSULIN DETEMIR 100 UNITS/ML MDV SQ SCH ×2 (22:00)
[2016-09-13] MEDS ORDERED: ceFAZolin SODIUM 1 GM VIAL ONE ×3 (01:28→17:05)
[2016-09-13] MEDS ORDERED: DEXTROSE 5%-WATER - 50 ML IVPB ONE ×3 (01:28→17:05)
[2016-09-13] MEDS: CEFAZOLIN 1 GM in DEXTROSE 5%-WATER - 50 ML IVPB SCH ×3 (01:30→17:22)
[2016-09-13] MEDS: INSULIN SLIDING SCALE (NOVOLOG) 1 VIAL SQ SCH ×3 (06:40→17:22)
[2016-09-13 07:44] LABS: BASOPHIL 0.6 % (0-2.0); EOSINOPHIL 4.3 % (0-4.5); MCH 25.2 pg (25.7-33.7); MEAN CELL VOLUME 76.3 fl (80-96); MEAN PLT VOLUME 9.1 fl (7.5-11.1); NEUTROPHILS 73.8 % (42.8-82.8); PLATELET COUNT 170 K/MM3 (134-434); RDW 20.4 % (11.6-15.6); WHITE BLOOD COUNT 10.1 K/mm3 (4.0-10.0)
[2016-09-13 08:12] LABS: ALBUMIN 2.3 g/dl (3.4-5.0); ANION GAP 7 (8-16); CALCIUM 7.7 mg/dL (8.5-10.1); CO2 30 mmol/L (21-32); CREATININE 1.4 mg/dL (0.55-1.02); SGOT/AST 31 U/L (15-37); SGPT/ALT 9 U/L (12-78)
[2016-09-13 08:16] LABS: ALK PHOS 78 U/L (45-117); BILIRUBIN,TOTAL 0.7 mg/dL (0.2-1.0); TOT PROT 5.4 g/dl (6.4-8.2)
[2016-09-13] MEDS ORDERED: POTASSIUM CHLORIDE TABS 20 MEQ TABLET.ER (FP) PO ONE (08:36)
[2016-09-13 08:41] LABS: GLUCOSE,RANDOM 44 mg/dL (74-106)
--- NOTE | 2016-09-13 08:44 | PN ---
Progress Note (short form) - Note Progress Note: pt seen/ examined. comfortable. eating breakfast. pt awake/ no distress. afebrile Vital Signs Temp 98.4 F 09/13/16 01:53 Pulse 90 09/13/16 01:53 Resp 20 09/13/16 01:53 BP 143/65 09/13/16 01:53 Pulse Ox 95 09/12/16 20:44 Intake & Output 09/12/16 09/12/16 09/13/16 11:59 23:59 11:59 Intake Total 400 800 50 Output Total 200 Balance 400 600 50 Intake: IVPB 50 100 50 Oral 700 Packed Cells 350 Output: Urine 200 Void 200 Other: Voiding Method Incontinent Incontinent # Unmeasured Voids Void 2 Bowel Movement Yes No # Bowel Movements 1 Active Medications Acetaminophen (Tylenol -) 650 mg PO Q6H PRN PRN Reason: pain/fever Last Admin: 09/11/16 18:47 Dose: 650 mg Atorvastatin Calcium (Lipitor -) 10 mg PO HS [facility] Last Admin: 09/12/16 21:52 Dose: 10 mg Bisacodyl (Dulcolax Suppository -) 10 mg RC DAILY PRN PRN Reason: CONSTIPATION Last Admin: 09/11/16 18:48 Dose: 10 mg Clonidine (Catapres -) 0.1 mg PO BID [facility] Last Admin: 09/12/16 21:53 Dose: 0.1 mg Enoxaparin Sodium (Lovenox -) 30 mg SQ DAILY [facility] Last Admin: 09/12/16 10:09 Dose: 30 mg Haloperidol (Haldol -) 2.5 mg PO BID [facility] Last Admin: 09/12/16 21:52 Dose: 2.5 mg Cefazolin Sodium 1 gm/ (Dextrose) 50 mls @ 100 mls/hr IVPB Q8H-IV [facility] Last Admin: 09/13/16 01:30 Dose: 100 mls/hr Insulin Aspart (Novolog Vial Sliding Scale -) 1 vial SQ TIDAC [facility] PRN Reason: Protocol Last Admin: 09/13/16 06:40 Dose: Not Given Insulin Detemir (Levemir Vial) 10 units SQ HS [facility] Last Admin: 09/12/16 21:51 Dose: 10 units Lorazepam (Ativan Injection -) 0.5 mg IVPUSH Q6H PRN PRN Reason: AGITATION Oxycodone HCl (Roxicodone -) 5 mg PO Q4H PRN PRN Reason: PAIN Last Admin: 09/12/16 21:51 Dose: 5 mg Polyethylene Glycol (Miralax (For Daily Use) -) 17 gm PO DAILY [facility] Last Admin: 09/12/16 10:13 Dose: 17 grams Potassium Chloride (K-Dur -) 40 meq PO ONCE ONE Stop: 09/13/16 08:37 Quetiapine Fumarate (Seroquel -) 25 mg PO BID [facility] Last Admin: 09/12/16 21:53 Dose: 25 mg Senna/Docusate Sodium (Pericolace -) 2 tablet PO DAILY [facility] Last Admin: 09/12/16 10:10 Dose: 2 tablet Sertraline HCl (Zoloft -) 25 mg PO DAILY [facility] Last Admin: 09/12/16 10:11 Dose: 25 mg Trihexyphenidyl HCl (Artane -) 2 mg PO DAILY [facility] Last Admin: 09/12/16 10:11 Dose: 2 mg CBC, BMP 09/13/16 07:31 09/13/16 07:31 ct scans -- reviewed Physical Exam. Constitutional: Yes: No Distress/ confused . Cardiovascular: Yes: Regular Rate and Rhythm Respiratory: Yes: Diminished Gastrointestinal: Yes: Normal Bowel Sounds, Soft. No: Distention, Tenderness Extremities: Yes: Other (left thigh edema, erythema ) Edema: trace Assessment/Plan clinically stable h/h stable. oob- chair monitor bgm continue abx supplement k f/u cbc/ electrolytes will follow Problem List - Problems (1) Intertrochanteric fracture of left hip Code(s): S72.142A - DISPLACED INTERTROCHANTERIC FRACTURE OF LEFT FEMUR, INIT Qualifiers: Encounter type: initial encounter Fracture type: closed Fracture alignment: nondisplaced Qualified Code(s): S72.145A - Nondisplaced intertrochanteric fracture of left femur, initial encounter for closed fracture (2) Schizophrenia Code(s): F20.9 - SCHIZOPHRENIA, UNSPECIFIED (3) Diabetes Code(s): E11.9 - TYPE 2 DIABETES MELLITUS WITHOUT COMPLICATIONS (4) Chronic renal insufficiency, stage III (moderate) Code(s): N18.3 - CHRONIC KIDNEY DISEASE, STAGE 3 (MODERATE) (5) Anemia requiring transfusions Code(s): D64.9 - ANEMIA, UNSPECIFIED (6) Dementia Code(s): F03.90 - UNSPECIFIED DEMENTIA WITHOUT BEHAVIORAL DISTURBANCE (7) Coronary artery disease Code(s): I25.10 - ATHSCL HEART DISEASE OF [place] CORONARY ARTERY W/O ANG PCTRS
[2016-09-13] MEDS ORDERED: PT OWN MED DRAWER 7, Y5N ONE (11:33)
--- NOTE | 2016-09-13 11:34 | PN ---
Progress Note (short form) - Note Progress Note: Ortho Pt seen and examined s/p left IM gamma nail Selected Entries 09/13/16 01:53 Temperature 98.4 F Pulse Rate 90 Respiratory 20 Rate Blood Pressure 143/65 Laboratory Tests 09/13/16 07:31 WBC 10.1 H Hgb 10.8 Hct 32.8 Plt Count 170 dressing c/d/i, calf soft, nt nvi a/p PT if able dvt ppx pain control d/c planning
[2016-09-13] MEDS ORDERED: POTASSIUM CHLORIDE ORAL LIQUID 20 MEQ/15 ML ONE (11:35)
[2016-09-13] MEDS: ENOXAPARIN NA (PORCINE) 30 MG/0.3 ML DISP.SYRIN SQ SCH (11:38)
[2016-09-13] MEDS: SENNOSIDES/DOCUSATE COMBO (SENNA PLUS) TABLET (UD) PO SCH (11:38)
[2016-09-13] MEDS: QUEtiapine FUMARATE 25 MG TABLET (FP) PO SCH ×2 (11:38→21:18)
[2016-09-13] MEDS: TRIHEXYPHENIDYL HCL 2 MG TABLET PO SCH (11:39)
[2016-09-13] MEDS: cloNIDine HCL 0.1 MG TABLET PO SCH ×2 (11:39→21:13)
[2016-09-13] MEDS: POLYETHYLENE GLYCOL 3350 119 GM BTL PO SCH (11:40)
[2016-09-13] MEDS: HALOPERIDOL 5 MG TABLET (FP) PO SCH ×2 (11:40→21:14)
[2016-09-13] MEDS: SERTRALINE HCL 25 MG TABLET (FP) PO SCH (11:42)
[2016-09-13] MEDS: oxyCODONE HCL 5 MG TABLET PO PRN (13:15)
[2016-09-13] MEDS ORDERED: INSULIN (NOVOLOG) ASPART 100 UNITS/ML 10ML VIAL ONE (17:03)
[2016-09-13] MEDS: ATORVASTATIN CA 10 MG TABLET (FP) PO SCH (21:13)
[2016-09-13] MEDS: ACETAMINOPHEN 325 MG TABLET (FP) PO PRN (21:13)
[2016-09-13] MEDS: INSULIN DETEMIR 100 UNITS/ML MDV SQ SCH (21:15)
[2016-09-14] MEDS ORDERED: DEXTROSE 5%-WATER - 50 ML IVPB ONE ×2 (01:03→09:38)
[2016-09-14] MEDS ORDERED: ceFAZolin SODIUM 1 GM VIAL ONE ×2 (01:03→09:38)
[2016-09-14] MEDS: CEFAZOLIN 1 GM in DEXTROSE 5%-WATER - 50 ML IVPB SCH ×2 (01:08→10:01)
[2016-09-14] MEDS: INSULIN SLIDING SCALE (NOVOLOG) 1 VIAL SQ SCH ×3 (06:28→17:20)
[2016-09-14] MEDS ORDERED: INSULIN (NOVOLOG) ASPART 100 UNITS/ML 10ML VIAL ONE (06:46)
[2016-09-14] MEDS: ACETAMINOPHEN 325 MG TABLET (FP) PO PRN ×2 (06:52→21:26)
[2016-09-14] MEDS: oxyCODONE HCL 5 MG TABLET PO PRN (06:56)
[2016-09-14 09:03] LABS: BASOPHIL 0.7 % (0-2.0); EOSINOPHIL 6.4 % (0-4.5); MCH 25.2 pg (25.7-33.7); MCHC 32.9 g/dl (32.0-36.0); MEAN CELL VOLUME 76.7 fl (80-96); MEAN PLT VOLUME 8.9 fl (7.5-11.1); NEUTROPHILS 74.1 % (42.8-82.8); PLATELET COUNT 177 K/MM3 (134-434); RDW 20.8 % (11.6-15.6); WHITE BLOOD COUNT 9.4 K/mm3 (4.0-10.0)
[2016-09-14 09:35] LABS: ALBUMIN 2.5 g/dl (3.4-5.0); ANION GAP 9 (8-16); CALCIUM 8.2 mg/dL (8.5-10.1); CO2 28 mmol/L (21-32); CREATININE 1.3 mg/dL (0.55-1.02); GLUCOSE,RANDOM 186 mg/dL (74-106); SGOT/AST 34 U/L (15-37); SGPT/ALT 7 U/L (12-78)
[2016-09-14 09:37] LABS: ALK PHOS 81 U/L (45-117); TOT PROT 5.2 g/dl (6.4-8.2)
[2016-09-14] MEDS ORDERED: PT OWN MED DRAWER 7, Y5N ONE (09:38)
[2016-09-14] MEDS: ENOXAPARIN NA (PORCINE) 30 MG/0.3 ML DISP.SYRIN SQ SCH (10:01)
[2016-09-14] MEDS: QUEtiapine FUMARATE 25 MG TABLET (FP) PO SCH ×2 (10:02→21:20)
[2016-09-14] MEDS: SENNOSIDES/DOCUSATE COMBO (SENNA PLUS) TABLET (UD) PO SCH (10:02)
[2016-09-14] MEDS: cloNIDine HCL 0.1 MG TABLET PO SCH ×2 (10:02→21:20)
[2016-09-14] MEDS: TRIHEXYPHENIDYL HCL 2 MG TABLET PO SCH (10:02)
[2016-09-14] MEDS: SERTRALINE HCL 25 MG TABLET (FP) PO SCH (10:02)
[2016-09-14] MEDS: HALOPERIDOL 5 MG TABLET (FP) PO SCH ×2 (10:03→21:20)
[2016-09-14] MEDS: POLYETHYLENE GLYCOL 3350 119 GM BTL PO SCH (10:04)
--- NOTE | 2016-09-14 12:03 | PN ---
Progress Note (short form) - Note Progress Note: patient seen and examined Awake and comfortable Confused No distress Afebrile Vital Signs Temp 98.8 F 09/14/16 08:26 Pulse 84 09/14/16 08:26 Resp 18 09/14/16 08:26 BP 132/70 09/14/16 08:26 Pulse Ox 95 09/12/16 20:44 Intake & Output 09/13/16 09/14/16 09/14/16 23:59 11:59 23:59 Intake Total 170 Balance 170 Intake: IVPB 50 Oral 120 Other: Voiding Method Incontinent Toilet # Unmeasured Voids Void 1 Active Medications Acetaminophen (Tylenol -) 650 mg PO Q6H PRN PRN Reason: pain/fever Last Admin: 09/14/16 06:52 Dose: 650 mg Atorvastatin Calcium (Lipitor -) 10 mg PO HS [facility] Last Admin: 09/13/16 21:13 Dose: 10 mg Bisacodyl (Dulcolax Suppository -) 10 mg RC DAILY PRN PRN Reason: CONSTIPATION Last Admin: 09/11/16 18:48 Dose: 10 mg Clonidine (Catapres -) 0.1 mg PO BID [facility] Last Admin: 09/14/16 10:02 Dose: 0.1 mg Enoxaparin Sodium (Lovenox -) 30 mg SQ DAILY [facility] Last Admin: 09/14/16 10:01 Dose: 30 mg Haloperidol (Haldol -) 2.5 mg PO BID [facility] Last Admin: 09/14/16 10:03 Dose: 2.5 mg Cefazolin Sodium 1 gm/ (Dextrose) 50 mls @ 100 mls/hr IVPB Q8H-IV [facility] Last Admin: 09/14/16 10:01 Dose: 100 mls/hr Insulin Aspart (Novolog Vial Sliding Scale -) 1 vial SQ TIDAC [facility] PRN Reason: Protocol Last Admin: 09/14/16 11:31 Dose: 4 units Insulin Detemir (Levemir Vial) 6 units SQ [facility] Last Admin: 09/13/16 21:15 Dose: 6 units Polyethylene Glycol (Miralax (For Daily Use) -) 17 gm PO DAILY [facility] Last Admin: 09/14/16 10:04 Dose: 17 grams Quetiapine Fumarate (Seroquel -) 25 mg PO BID [facility] Last Admin: 09/14/16 10:02 Dose: 25 mg Senna/Docusate Sodium (Pericolace -) 2 tablet PO DAILY [facility] Last Admin: 09/14/16 10:02 Dose: 2 tablet Sertraline HCl (Zoloft -) 25 mg PO DAILY [facility] Last Admin: 09/14/16 10:02 Dose: 25 mg Trihexyphenidyl HCl (Artane -) 2 mg PO DAILY [facility] Last Admin: 09/14/16 10:02 Dose: 2 mg CBC, BMP 09/14/16 07:25 09/14/16 07:25 Physical Exam. Constitutional: Yes: No Distress/ Comfortable. Cardiovascular: Yes: Regular Rate and Rhythm Respiratory: Yes: Diminished Gastrointestinal: Yes: Normal Bowel Sounds, Soft. No: Distention, Tenderness Extremities: Yes: Other (left thigh edema, decreased erythema )--decreased-- Edema: trace Assessment/Plan clinically stable h/h stable. oob- chair monitor bgm continue abx consider discharge on by mouth antibiotics tomorrow Problem List - Problems (1) Intertrochanteric fracture of left hip Code(s): S72.142A - DISPLACED INTERTROCHANTERIC FRACTURE OF LEFT FEMUR, INIT Qualifiers: Encounter type: initial encounter Fracture type: closed Fracture alignment: nondisplaced Qualified Code(s): S72.145A - Nondisplaced intertrochanteric fracture of left femur, initial encounter for closed fracture (2) Schizophrenia Code(s): F20.9 - SCHIZOPHRENIA, UNSPECIFIED (3) Diabetes Code(s): E11.9 - TYPE 2 DIABETES MELLITUS WITHOUT COMPLICATIONS (4) Chronic renal insufficiency, stage III (moderate) Code(s): N18.3 - CHRONIC KIDNEY DISEASE, STAGE 3 (MODERATE) (5) Anemia requiring transfusions Code(s): D64.9 - ANEMIA, UNSPECIFIED (6) Dementia Code(s): F03.90 - UNSPECIFIED DEMENTIA WITHOUT BEHAVIORAL DISTURBANCE (7) Coronary artery disease Code(s): I25.10 - ATHSCL HEART DISEASE OF [place] CORONARY ARTERY W/O ANG PCTRS
[2016-09-14] MEDS: CEPHALEXIN MONOHYDRATE 500 MG CAPSULE (UD) PO SCH (21:20)
[2016-09-14] MEDS: INSULIN DETEMIR 100 UNITS/ML MDV SQ SCH (21:20)
[2016-09-14] MEDS: ATORVASTATIN CA 10 MG TABLET (FP) PO SCH (21:20)
[2016-09-15] MEDS: ACETAMINOPHEN 325 MG TABLET (FP) PO PRN (05:33)
[2016-09-15] MEDS: INSULIN SLIDING SCALE (NOVOLOG) 1 VIAL SQ SCH ×2 (06:36→11:38)
--- NOTE | 2016-09-15 07:19 | PN ---
Progress Note (short form) - Note Progress Note: Ortho Pt seen and examined s/p left IM gamma nail Selected Entries 09/15/16 06:00 Temperature 98.9 F Pulse Rate 81 Respiratory 18 Rate Blood Pressure 154/92 Laboratory Tests 09/14/16 07:25 WBC 9.4 Hgb 9.9 L Hct 30.1 L Plt Count 177 incision c/d/i, calf soft, nt nvi a/p PT if able dvt ppx pain control d/c planning
[2016-09-15] MEDS ORDERED: PT OWN MED DRAWER 7, Y5N ONE (09:29)
[2016-09-15] MEDS: TRIHEXYPHENIDYL HCL 2 MG TABLET PO SCH (09:51)
[2016-09-15] MEDS: cloNIDine HCL 0.1 MG TABLET PO SCH (09:51)
[2016-09-15] MEDS: SERTRALINE HCL 25 MG TABLET (FP) PO SCH (09:51)
[2016-09-15] MEDS: CEPHALEXIN MONOHYDRATE 500 MG CAPSULE (UD) PO SCH (09:55)
[2016-09-15] MEDS: QUEtiapine FUMARATE 25 MG TABLET (FP) PO SCH (09:55)
[2016-09-15] MEDS: HALOPERIDOL 5 MG TABLET (FP) PO SCH (09:55)
[2016-09-15] MEDS: SENNOSIDES/DOCUSATE COMBO (SENNA PLUS) TABLET (UD) PO SCH (09:55)
[2016-09-15] MEDS: ENOXAPARIN NA (PORCINE) 30 MG/0.3 ML DISP.SYRIN SQ SCH (09:59)
[2016-09-15] MEDS: POLYETHYLENE GLYCOL 3350 119 GM BTL PO SCH (10:00)
--- NOTE | 2016-09-15 10:30 | DS ---
Physical Examination Vital Signs: Vital Signs Temperature 98.9 F 09/15/16 06:00 Pulse Rate 81 09/15/16 06:00 Respiratory Rate 18 09/15/16 06:00 Blood Pressure 154/92 09/15/16 06:00 O2 Sat by Pulse Oximetry (%) 96 09/14/16 21:00 Findings/Remarks: feels ok. sitting in chair. poor historian afebrile Constitutional: Yes: No Distress, Calm Eyes: Yes: Conjunctiva Clear Neck: Yes: Supple Cardiovascular: Yes: Regular Rate and Rhythm Respiratory: Yes: CTA Bilaterally Gastrointestinal: Yes: Soft Extremities: Yes: Other (lle -- decreased erythema---leslye in place- site clean) Wound/Incision: Yes: Clean/Dry, [place] Intact Labs: CBC, BMP 09/14/16 07:25 09/14/16 07:25 Discharge Summary Reason For Visit: INTERTROCHANTERIC FRACTURE OF LEFT FEMUR Current Active Problems Anemia requiring transfusions (Acute) CHF (congestive heart failure) (Acute) Chronic renal insufficiency, stage III (moderate) (Acute) Coronary artery disease (Acute) Dementia (Acute) Diabetes (Acute) Intertrochanteric fracture of left hip (Acute) Renal insufficiency syndrome (Acute) Schizophrenia (Acute) Hospital Course: admitted from detention--s/p fall---left femur inter trochantric fracture. under went gamma nailing on 09/09/16- Dr. Salcedo Course complicated by anemia-- transfused. no sign of bleeding ALSO TREATED WITH ABX FOR LEFT THIGH CELLULITIS. Now stable for d/c Any anemia work up as out pt if needed. meds reconcilled. f/u with ortho as advised. d/c time 40 min in examining/ documenting and coordinating care. Condition: Improved - Instructions Disposition: ASSISTED FACILITY - Home Medications Comprehensive Discharge Medication List: Ambulatory Orders Acetaminophen 650 mg PO Q6H PRN 09/07/16 Clonidine HCl [Clonidine HCl ER] 0.1 mg PO BID 09/07/16 Clopidogrel Bisulfate [Plavix -] 75 mg PO DAILY 09/07/16 Enalapril Maleate [Vasotec] 10 mg PO BID 09/07/16 Guaifenesin [Anne-Tussin] 200 mg PO Q4H PRN 09/07/16 Haloperidol [Haldol -] 5 mg PO BID 09/07/16 Insulin Regular, Human [Humulin R U-500 Kwikpen] 0 unit SQ QID 09/07/16 Multivitamin-Min/Iron/FA/Vit K [Multi-Day Plus Minerals Tablet] 1 each PO DAILY 09/07/16 Na Phos,M-B/Na Phos,Di-Ba [Fleet Enema] 133 ml RC PRN PRN 09/07/16 Petrolatum,White/Lanolin [Vitamin A & D Ointment] 454 gm TP TID 09/07/16 Quetiapine Fumarate [Seroquel -] 25 mg PO TID 09/07/16 Sennosides/Docusate Sodium [Senna Laxative Tablet] 2 each PO DAILY 09/07/16 Sertraline HCl [Zoloft] 25 mg PO DAILY 09/07/16 Simvastatin [Zocor -] 20 mg PO HS 09/07/16 Trihexyphenidyl HCl 2 mg PO DAILY 09/07/16 Bisacodyl Suppository [Dulcolax Suppository -] 10 mg RC DAILY PRN #30 supp.rect 09/15/16 Cephalexin Monohydrate [Keflex -] 500 mg PO BID #14 cap 09/15/16 Enoxaparin [Lovenox -] 30 mg SQ DAILY #30 amp 09/15/16 Insulin (Levemir) [Levemir Vial] 6 units SQ HS ml 09/15/16 Polyethylene Glycol 3350 [Miralax 119 gm Btl -] 17 gm PO DAILY #1 bottle
[2016-09-15 14:34] VITALS: BP 139/81; PULSE 86; TEMP 98
--- NOTE | 2016-09-23 14:53 | PN ---
Progress Note (short form) - Note Progress Note: Ortho Pt was transfused due to acute blood loss anemia from the operation.
== END 2016-09-15 14:45 | DRG 481 ==
LOC: JER 13:12 → JERBED 16:37 → J7W 22:52 → J6S 09-09 15:56
PROVIDERS: ADMIT Internal Medicine; ATTEND Internal Medicine
PROC: 30233N1 Transfusion of Nonautologous Red Blood Cells into Peripheral Vein, Percutaneous Approach (ICD-10-PCS; 2016-09-08)
PROC: 0QS706Z Reposition Left Upper Femur with Intramedullary Internal Fixation Device, Open Approach (ICD-10-PCS; principal; 2016-09-09 16:30)
DX: S72.142A Displaced intertrochanteric fracture of left femur, initial encounter for closed fracture (principal); D62 Acute posthemorrhagic anemia; I13.0 Hypertensive heart and chronic kidney disease with heart failure and stage 1 through stage 4 chronic kidney disease, or unspecified chronic kidney disease; L03.116 Cellulitis of left lower limb; W19.XXXA Unspecified fall, initial encounter; Y93.9 Activity, unspecified; Y92.89 Other specified places as the place of occurrence of the external cause; Y99.9 Unspecified external cause status; I25.10 Atherosclerotic heart disease of native coronary artery without angina pectoris; F03.90 Unspecified dementia, unspecified severity, without behavioral disturbance, psychotic disturbance, mood disturbance, and anxiety; F20.9 Schizophrenia, unspecified; N28.9 Disorder of kidney and ureter, unspecified; E78.5 Hyperlipidemia, unspecified; E11.22 Type 2 diabetes mellitus with diabetic chronic kidney disease; N18.3 Chronic kidney disease, stage 3 (moderate); I50.9 Heart failure, unspecified; Z79.4 Long term (current) use of insulin
CPT/HCPCS: 36415; 36430; 36600; 70450-TC; 71010-TC; 73523-TC; 73700-TC-RT; 76000-TC; 80048; 80053; 81003; 81015; 82803; 83036; 83880; 84484; 85025; 85027; 85610; 86850; 86900; 86901; 86922; 87086; 93005; 93010; 94760; 97116-GP; 97161-GP; 99284-25; P9038; P9058

== ENCOUNTER 2016-09-26 20:43 | Inpatient (IN) | payer OTHER ==
[2016-09-26 20:55] VITALS: BMI 26.5
--- NOTE | 2016-09-26 21:27 | PDOC ---
History of Present Illness - General Chief Complaint: Injury Stated Complaint: FALL Time Seen by Provider: 09/26/16 21:26 History Source: Patient, Jail Records ([facility]) - History of Present Illness Initial Comments: 09/26/16 22:10 86-year-old female with history left intrertrochantric fracture s/p gamma nailing and repair on 09/09, surgical course was complicated by left thigh cellulitis. Patient sent from [facility] status post unwitnessed fall. As per her nurse patient was found near the door laying on the left side. Patient now complaining of left leg pain. Patient is alert oriented 3 does not recall a course of events. Patient has a past medical history hypertension, type 1 diabetes, CAD, hyperlipidemia, dementia with behavioral disturbance, pressure ulcer of the left buttocks stage II. PMD, Dr.P. Mg Past History - Past Medical History Allergies/Adverse Reactions: Allergies Allergy/AdvReac Type Severity Reaction Status Date / Time divalproex sodium Allergy Verified 09/26/16 20:51 [From [facility]] Home Medications: Ambulatory Orders Clonidine HCl [Clonidine HCl ER] 0.1 mg PO BID 09/07/16 Enalapril Maleate [Vasotec] 10 mg PO BID 09/07/16 Haloperidol [Haldol -] 5 mg PO BID 09/07/16 Insulin Regular, Human [Humulin R U-500 Kwikpen] 0 unit SQ QID 09/07/16 Multivitamin-Min/Iron/FA/Vit K [Multi-Day Plus Minerals Tablet] 1 each PO DAILY 09/07/16 Petrolatum,White/Lanolin [Vitamin A & D Ointment] 454 gm TP TID 09/07/16 Quetiapine Fumarate [Seroquel -] 25 mg PO TID 09/07/16 Sennosides/Docusate Sodium [Senna Laxative Tablet] 2 each PO DAILY 09/07/16 Sertraline HCl [Zoloft] 25 mg PO DAILY 09/07/16 Simvastatin [Zocor -] 20 mg PO HS 09/07/16 Trihexyphenidyl HCl 2 mg PO DAILY 09/07/16 Enoxaparin [Lovenox -] 30 mg SQ DAILY #30 amp 09/15/16 Insulin (Levemir) [Levemir Vial] 6 units SQ HS ml 09/15/16 Polyethylene Glycol 3350 [Miralax 119 gm Btl -] 17 gm PO DAILY #1 bottle Oxycodone HCl/Acetaminophen [Percocet 5-325 mg Tablet] 1 tab PO BID 09/26/16 Aspirin [ASA -] 325 mg PO DAILY #30 tablet 10/02/16 Cephalexin [Keflex] 500 mg PO BID #12 capsule 10/02/16 Oxycodone HCl [Roxicodone -] 5 mg PO BID PRN #20 tablet MDD 2 10/02/16 Anemia: Yes Dementia: Yes Diabetes: Yes GI Disorders: Yes (CONSTIPATION.) HTN: Yes Hypercholesterolemia: Yes Psychiatric Problems: Yes (SCHIZOPHRENIA.) - Psycho/Social/Smoking Cessation Hx Anxiety: No Suicidal Ideation: No Smoking Status: Yes Smoking History: Unknown if ever smoked Have you smoked in the past 12 months: No Number of Cigarettes Smoked Daily: 0 Cigars Per Day: 0 Information on smoking cessation initiated: No 'Breaking Loose' booklet given: 04/21/12 Hx Alcohol Use: No Drug/Substance Use Hx: No Substance Use Type: None Hx Substance Use Treatment: No *Physical Exam - Vital Signs Last Vital Signs Temp Pulse Resp BP Pulse Ox 97.1 F L 92 H 18 182/91 95 09/26/16 20:51 09/26/16 20:51 09/26/16 20:51 09/26/16 20:51 09/26/16 20:51 ED Treatment Course - LABORATORY CBC & Chemistry Diagram: 10/02/16 07:30 10/02/16 07:30 Progress Note - Progress Note Progress Note: A: left femur fracture; CHF P: cbc cmp xray: left displaced femural shaft fracture pelvis ct: + acute femur fracture head ct: no acute findingd Medical Decision Making - Medical Decision Making 09/27/16 01:[address] delaney. pending call back from JEREMY elizabeth *DC/Admit/Observation/Transfer Diagnosis at time of Disposition: Fall in elderly patient, Cellulitis and abscess of left leg Closed left femoral fracture Qualifiers: Encounter type: initial encounter Femur location: shaft Fracture morphology: transverse Fracture alignment: displaced Qualified Code(s): S72.322A - Displaced transverse fracture of shaft of left femur, initial encounter for closed fracture CHF (congestive heart failure) Qualifiers: Congestive heart failure type: unspecified congestive heart failure type Congestive heart failure chronicity: acute on chronic Qualified Code(s): I50.9 - Heart failure, unspecified - Discharge Dispostion Disposition: JAIL FACILITY Condition at time of disposition: Improved Admit: Yes - Prescriptions - Referrals
--- NOTE | 2016-09-26 21:46 | PDOC ---
*Physical Exam - Vital Signs Last Vital Signs Temp Pulse Resp BP Pulse Ox 97.1 F L 92 H 18 182/91 95 09/26/16 20:51 09/26/16 20:51 09/26/16 20:51 09/26/16 20:51 09/26/16 20:51 ED Treatment Course - LABORATORY CBC & Chemistry Diagram: 09/30/16 07:00 09/29/16 08:45 Medical Decision Making - Medical Decision Making 09/26/16 21:46 Pt seen by the Advanced Practice Provider under my direct supervision Ancillary studies reviewed I agree with plan as outlined by the Advanced Practice Provider PARK Varela *DC/Admit/Observation/Transfer Diagnosis at time of Disposition: Closed left femoral fracture, CHF (congestive heart failure), Fall in elderly patient, Cellulitis and abscess of left leg
[2016-09-26 22:16] LABS: BASOPHIL 0.8 % (0-2.0); EOSINOPHIL 0.8 % (0-4.5); MCH 24.3 pg (25.7-33.7); MCHC 31.4 g/dl (32.0-36.0); MEAN CELL VOLUME 77.3 fl (80-96); MEAN PLT VOLUME 8.5 fl (7.5-11.1); NEUTROPHILS 87.6 % (42.8-82.8); PLATELET COUNT 327 K/MM3 (134-434); RDW 21.7 % (11.6-15.6); WHITE BLOOD COUNT 10.5 K/mm3 (4.0-10.0)
[2016-09-26 22:37] LABS: INR 1.04 (0.82-1.09); PROTHROMBIN TIME (PATIENT) 11.5 SEC (9.98-11.88)
[2016-09-26 22:52] LABS: ALBUMIN 2.8 g/dl (3.4-5.0); ALK PHOS 344 U/L (45-117); ANION GAP 8 (8-16); BILIRUBIN,TOTAL 0.6 mg/dL (0.2-1.0); CALCIUM 8.3 mg/dL (8.5-10.1); CO2 30 mmol/L (21-32); CPK 92 IU/L (26-192); CREATININE 1.5 mg/dL (0.55-1.02); MAGNESIUM 2.4 mg/dL (1.8-2.4); SGOT/AST 33 U/L (15-37); SGPT/ALT 29 U/L (12-78); TOT PROT 5.7 g/dl (6.4-8.2)
[2016-09-26 22:55] LABS: TROPONIN I 0.02 ng/ml (0.00-0.05)
[2016-09-26 22:59] LABS: GLUCOSE,RANDOM 307 mg/dL (74-106)
[2016-09-26] MEDS ORDERED: morphine CARPU-JECT 2 MG/1 ML DISP.SYRIN IVPUSH ONE (22:59)
[2016-09-26] MEDS ORDERED: morphine CARPU-JECT 2 MG/1 ML DISP.SYRIN ONE (23:17)
[2016-09-27] MEDS ORDERED: CEFAZOLIN (PRE-DOCKED) 1 GM in DEXTROSE 5%-WATER - 50 ML IVPB ONE (01:14)
[2016-09-27] MEDS ORDERED: morphine CARPU-JECT 2 MG/1 ML DISP.SYRIN IVPUSH ONE ×2 (01:55→10:00)
[2016-09-27] MEDS ORDERED: morphine CARPU-JECT 2 MG/1 ML DISP.SYRIN ONE (01:56)
[2016-09-27 02:05] LABS: ANISOCYTOSIS 2+; MACROCYTOSIS 1+
[2016-09-27] MEDS ORDERED: ENALAPRIL MALEATE 5 MG TABLET (FP) ONE (02:51)
[2016-09-27] MEDS ORDERED: ENALAPRIL MALEATE 10 MG TABLET (FP) PO SCH (03:00)
[2016-09-27] MEDS ORDERED: DEXTROSE 5%-0.45% SALINE 1,000 ML IV SCH (09:30)
[2016-09-27] MEDS ORDERED: ACETAMINOPHEN 325 MG TABLET (FP) PO PRN (10:08)
[2016-09-27] MEDS ORDERED: oxyCODONE HCL 5 MG TABLET PO PRN (10:08)
--- NOTE | 2016-09-27 10:32 | HP ---
Admitting History and Physical - Primary Care Physician PCP: Selvin Mendez E - Admission Chief Complaint: s/p fall History of Present Illness: ER HISTORY - History of Present Illness Initial Comments: 09/26/16 22:10 86-year-old female with history left intrertrochantric fracture s/p gamma nailing and repair on 09/09, surgical course was complicated by left thigh cellulitis. Patient sent from [facility] status post unwitnessed fall. As per her nurse patient was found near the door laying on the left side. Patient now complaining of left leg pain. Patient is alert oriented 3 does not recall a course of events. Patient has a past medical history hypertension, type 1 diabetes, CAD, hyperlipidemia, dementia with behavioral disturbance, pressure ulcer of the left buttocks stage II. Pt examined by me in the floors Known to me from previous admission Spoke to her PMD at [facility] yesterday-- Dr mendez--who told me that pt fell and c/o severe thigh pain Pt restrained as she is pulling out her IV lines She is AAOx2 History Source: Patient, Medical Record - Past Medical History CASE FILLER: Yes: Dementia Cardiovascular: Yes: HTN Renal/: Yes: Renal Inusuff Psych: Yes: Schizophrenia Endocrine: Yes: Diabetes Mellitus - Smoking History Smoking history: Unknown if ever smoked Have you smoked in the past 12 months: No Aproximately how many cigarettes per day: 0 - Alcohol/Substance Use Hx Alcohol Use: No Home Medications - Allergies Allergies/Adverse Reactions: Allergies Allergy/AdvReac Type Severity Reaction Status Date / Time divalproex sodium Allergy Verified 09/26/16 20:51 [From [facility]] - Home Medications Home Medications: Ambulatory Orders Clonidine HCl [Clonidine HCl ER] 0.1 mg PO BID 09/07/16 Clopidogrel Bisulfate [Plavix -] 75 mg PO DAILY 09/07/16 Enalapril Maleate [Vasotec] 10 mg PO BID 09/07/16 Haloperidol [Haldol -] 5 mg PO BID 09/07/16 Insulin Regular, Human [Humulin R U-500 Kwikpen] 0 unit SQ QID 09/07/16 Multivitamin-Min/Iron/FA/Vit K [Multi-Day Plus Minerals Tablet] 1 each PO DAILY 09/07/16 Petrolatum,White/Lanolin [Vitamin A & D Ointment] 454 gm TP TID 09/07/16 Quetiapine Fumarate [Seroquel -] 25 mg PO TID 09/07/16 Sennosides/Docusate Sodium [Senna Laxative Tablet] 2 each PO DAILY 09/07/16 Sertraline HCl [Zoloft] 25 mg PO DAILY 09/07/16 Simvastatin [Zocor -] 20 mg PO HS 09/07/16 Trihexyphenidyl HCl 2 mg PO DAILY 09/07/16 Enoxaparin [Lovenox -] 30 mg SQ DAILY #30 amp 09/15/16 Insulin (Levemir) [Levemir Vial] 6 units SQ HS ml 09/15/16 Polyethylene Glycol 3350 [Miralax 119 gm Btl -] 17 gm PO DAILY #1 bottle Oxycodone HCl/Acetaminophen [Percocet 5-325 mg Tablet] 1 tab PO BID 09/26/16 Review of Systems - Review of Systems Constitutional: denies: Chills, Fever, Loss of Appetite Musculoskeletal: reports: Joint Pain Physical Examination Vital Signs: Vital Signs Temperature 97.2 F L 09/27/16 04:17 Pulse Rate 82 09/27/16 04:17 Respiratory Rate 20 09/27/16 04:17 Blood Pressure 184/107 09/27/16 04:17 O2 Sat by Pulse Oximetry (%) 99 09/27/16 04:17 Constitutional: Yes: No Distress, Calm Cardiovascular: Yes: Regular Rate and Rhythm Respiratory: Yes: Diminished Gastrointestinal: Yes: Normal Bowel Sounds, Soft. No: Distention, Tenderness Extremities: Yes: Internal Rotation, Shortened Edema: Yes (left leg) Edema: LLE: 2+ Psychiatric: Yes: Alert Labs: Laboratory Results - last 24 hr 09/26/16 09/26/16 09/26/16 21:59 21:59 21:59 WBC 10.5 H RBC 3.69 Hgb 9.0 L Hct 28.5 L MCV 77.3 L MCH 24.3 L MCHC 31.4 L RDW 21.7 H Plt Count 327 D MPV 8.5 Neutrophils % 87.6 H Lymphocytes % 5.4 L D Monocytes % 5.4 Eosinophils % 0.8 D Basophils % 0.8 RBC Morphology Anisocytosis 2+ Macrocytosis 1+ INR 1.04 Sodium 138 Potassium 5.5 H D Chloride 100 Carbon Dioxide 30 Anion Gap 8 BUN 36 H D Creatinine 1.5 H Creat Clearance w eGFR 33.00 Random Glucose 307 H* D Calcium 8.3 L Magnesium 2.4 Total Bilirubin 0.6 D AST 33 ALT 29 D Alkaline Phosphatase 344 H D Creatine Kinase 92 Troponin I 0.02 B-Natriuretic Peptide 8323.38 H Total Protein 5.7 L Albumin 2.8 L Imaging - Results Chest X-ray: Image Reviewed (clear) Cat Scan: Report Reviewed EKG: Image Reviewed (sinus) Problem List - Problems (1) Closed left femoral fracture Code(s): S72.92XA - UNSP FRACTURE OF LEFT FEMUR, INIT ENCNTR FOR CLOSED FRACTURE Qualifiers: Encounter type: initial encounter Femur location: shaft Fracture morphology: transverse Fracture alignment: displaced Qualified Code(s): S72.322A - Displaced transverse fracture of shaft of left femur, initial encounter for closed fracture (2) Chronic renal insufficiency, stage III (moderate) Code(s): N18.3 - CHRONIC KIDNEY DISEASE, STAGE 3 (MODERATE) (3) Coronary artery disease Code(s): I25.10 - ATHSCL HEART DISEASE OF [place] CORONARY ARTERY W/O ANG PCTRS (4) Dementia Code(s): F03.90 - UNSPECIFIED DEMENTIA WITHOUT BEHAVIORAL DISTURBANCE Assessment/Plan PLAN Pelvic CT noted- new communited fracture Has hematoma as well Unlikley to be cellulitis Ortho eval Pt will be going to OR tomorrow hold Plavix Pain control check doppler leg DVT prophylaxis-- Lovenox, may hold tomorrow's dose Pt admitted in Telemetry by ER due to elevated BNP-- but pt is asymptomatic , not on fluids, CXR does not show congestion. Cardiology consult called by ER . Cleared for surgery tomorrow as this is an urgent procedure
[2016-09-27] MEDS: SERTRALINE HCL 25 MG TABLET (FP) PO SCH (11:01)
[2016-09-27] MEDS: cloNIDine HCL 0.1 MG TABLET PO SCH ×2 (11:01→21:52)
[2016-09-27] MEDS: SENNOSIDES/DOCUSATE COMBO (SENNA PLUS) TABLET (UD) PO SCH (11:01)
[2016-09-27] MEDS: ENALAPRIL MALEATE 10 MG TABLET (FP) PO SCH ×2 (11:01→21:53)
[2016-09-27 11:52] LABS: ANION GAP 7 (8-16); CALCIUM 8.3 mg/dL (8.5-10.1); CO2 32 mmol/L (21-32); CREATININE 1.4 mg/dL (0.55-1.02); GLUCOSE,RANDOM 254 mg/dL (74-106)
[2016-09-27] MEDS ORDERED: PT OWN MED DRAWER 7, Y5N ONE (13:54)
[2016-09-27] MEDS: TRIHEXYPHENIDYL HCL 2 MG TABLET PO SCH ×2 (13:54→22:42)
[2016-09-27] MEDS: POLYETHYLENE GLYCOL 3350 119 GM BTL PO SCH (14:58)
[2016-09-27] MEDS: ENOXAPARIN NA (PORCINE) 30 MG/0.3 ML DISP.SYRIN SQ SCH (14:59)
[2016-09-27] MEDS: QUEtiapine FUMARATE 25 MG TABLET (FP) PO SCH ×2 (14:59→21:52)
--- NOTE | 2016-09-27 15:06 | CON.ORTH ---
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 MANAGER: Yes: Dementia Cardio/Vascular: Yes: HTN Renal/: Yes: Renal Inusuff Psych: Yes: Schizophrenia Endocrine: Yes: Diabetes Mellitus - Alcohol/Substance Use Hx Alcohol Use: No - Smoking History Smoking history: Unknown if ever smoked Have you smoked in the past 12 months: No Aproximately how many cigarettes per day: 0 Home Medications - Allergies Allergies/Adverse Reactions: Allergies Allergy/AdvReac Type Severity Reaction Status Date / Time divalproex sodium Allergy Verified 09/26/16 20:51 [From [facility]] - Home Medications Home Medications: Ambulatory Orders Clonidine HCl [Clonidine HCl ER] 0.1 mg PO BID 09/07/16 Clopidogrel Bisulfate [Plavix -] 75 mg PO DAILY 09/07/16 Enalapril Maleate [Vasotec] 10 mg PO BID 09/07/16 Haloperidol [Haldol -] 5 mg PO BID 09/07/16 Insulin Regular, Human [Humulin R U-500 Kwikpen] 0 unit SQ QID 09/07/16 Multivitamin-Min/Iron/FA/Vit K [Multi-Day Plus Minerals Tablet] 1 each PO DAILY 09/07/16 Petrolatum,White/Lanolin [Vitamin A & D Ointment] 454 gm TP TID 09/07/16 Quetiapine Fumarate [Seroquel -] 25 mg PO TID 09/07/16 Sennosides/Docusate Sodium [Senna Laxative Tablet] 2 each PO DAILY 09/07/16 Sertraline HCl [Zoloft] 25 mg PO DAILY 09/07/16 Simvastatin [Zocor -] 20 mg PO HS 09/07/16 Trihexyphenidyl HCl 2 mg PO DAILY 09/07/16 Enoxaparin [Lovenox -] 30 mg SQ DAILY #30 amp 09/15/16 Insulin (Levemir) [Levemir Vial] 6 units SQ HS ml 09/15/16 Polyethylene Glycol 3350 [Miralax 119 gm Btl -] 17 gm PO DAILY #1 bottle Oxycodone HCl/Acetaminophen [Percocet 5-325 mg Tablet] 1 tab PO BID 09/26/16 Physical Exam for Ortho Vital Signs: Vital Signs Temperature 98 F 09/27/16 14:12 Pulse Rate 84 09/27/16 14:12 Respiratory Rate 20 09/27/16 14:12 Blood Pressure 130/78 09/27/16 14:12 O2 Sat by Pulse Oximetry (%) 99 09/27/16 10:00 Labs: CBC, BMP 09/27/16 11:10 INR, PTT INR 1.04 (0.82-1.09) 09/26/16 21:59 - Lower Extremity Leg: Yes: Left, Assymetrical, Deformity, Limited ROM, Pain, Swelling, Tenderness , Other (nvi) Imaging - Results X-ray: Report Reviewed, Image Reviewed Cat Scan: Report Reviewed, Image Reviewed Assessment/Plan 86-year-old female with past medical history hypertension, type 1 diabetes, CAD , hyperlipidemia, dementia with behavioral disturbance, pressure ulcer of the left buttocks stage II s/p fall. Pt had a left IM gamma nail on 09/09. Patient sent from [facility] status post unwitnessed fall. As per her nurse patient was found near the door laying on the left side. Patient complaining of left leg pain. a/p- left displaced femoral shaft fx, s/p IM gamma nail (short) Pt requires Left femur ORIF Risks and benefits were d/w pt although pt has h/o dementia- pt has no family- OR for thursday afternoon if cleared Surgical consent for left femur orif Surgical clearance NPO after midnight on 09/28 Hold AC after 10 pm on 09/28 d/w Dr. Rogel
--- NOTE | 2016-09-27 15:10 | CON.CARD ---
Consult Consult Specialty:: Cardiolgoy Referred by:: Dr. Saravia Reason for Consultation:: Elevated Pro-BNP - CHF? and syncope. - History of Present Illness Chief Complaint: CHF and Syncope History of Present Illness: 86-year-old with a PMHx of hypertension, DM, hyperlipidemia, CAD, dementia with behavioral disturbance, pressure ulcer of the left buttocks stage II and left intrertrochantric fracture s/p gamma nailing and repair on 09/09/2016, surgical course was complicated by left thigh cellulitis admitted 09/25/2016 with a unwitnessed fall. She was found to have left displaced femoral shaft fracture. Seen by orthopedics. Left femur ORIF is planned for 09/29/2016. Elevated pro-BNP noted. The patient has been comfortable without respiratory distress. ECG 09/27/2016 showed sinus rhythm, left axis deviation. APCs. No ST-T wave abnormalities. 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 HOME IMPROVEMENT: Yes: Dementia Cardio/Vascular: Yes: HTN Renal/: Yes: Renal Inusuff Psych: Yes: Schizophrenia Endocrine: Yes: Diabetes Mellitus - Alcohol/Substance Use Hx Alcohol Use: No - Smoking History Smoking history: Unknown if ever smoked Have you smoked in the past 12 months: No Aproximately how many cigarettes per day: 0 Home Medications - Allergies Allergies/Adverse Reactions: Allergies Allergy/AdvReac Type Severity Reaction Status Date / Time divalproex sodium Allergy Verified 09/26/16 20:51 [From [facility]] - Home Medications Home Medications: Ambulatory Orders Clonidine HCl [Clonidine HCl ER] 0.1 mg PO BID 09/07/16 Clopidogrel Bisulfate [Plavix -] 75 mg PO DAILY 09/07/16 Enalapril Maleate [Vasotec] 10 mg PO BID 09/07/16 Haloperidol [Haldol -] 5 mg PO BID 09/07/16 Insulin Regular, Human [Humulin R U-500 Kwikpen] 0 unit SQ QID 09/07/16 Multivitamin-Min/Iron/FA/Vit K [Multi-Day Plus Minerals Tablet] 1 each PO DAILY 09/07/16 Petrolatum,White/Lanolin [Vitamin A & D Ointment] 454 gm TP TID 09/07/16 Quetiapine Fumarate [Seroquel -] 25 mg PO TID 09/07/16 Sennosides/Docusate Sodium [Senna Laxative Tablet] 2 each PO DAILY 09/07/16 Sertraline HCl [Zoloft] 25 mg PO DAILY 09/07/16 Simvastatin [Zocor -] 20 mg PO HS 09/07/16 Trihexyphenidyl HCl 2 mg PO DAILY 09/07/16 Enoxaparin [Lovenox -] 30 mg SQ DAILY #30 amp 09/15/16 Insulin (Levemir) [Levemir Vial] 6 units SQ HS ml 09/15/16 Polyethylene Glycol 3350 [Miralax 119 gm Btl -] 17 gm PO DAILY #1 bottle Oxycodone HCl/Acetaminophen [Percocet 5-325 mg Tablet] 1 tab PO BID 09/26/16 Review of Systems - Review of Systems Constitutional: reports: No Symptoms Eyes: reports: No Symptoms HENT: reports: No Symptoms Neck: reports: No Symptoms Cardiovascular: reports: No Symptoms, Other (Elevated pro-BNP) Respiratory: reports: No Symptoms Gastrointestinal: reports: No Symptoms Genitourinary: reports: No Symptoms Musculoskeletal: reports: Extremity Pain (Left leg pain) Integumentary: reports: Wound Neurological: reports: Confusion Endocrine: reports: No Symptoms Hematology/Lymphatic: reports: No Symptoms Psychiatric: reports: Depression Vital Signs: Vital Signs Temperature 98 F 09/27/16 14:12 Pulse Rate 84 09/27/16 14:12 Respiratory Rate 20 09/27/16 14:12 Blood Pressure 130/78 09/27/16 14:12 O2 Sat by Pulse Oximetry (%) 99 09/27/16 10:00 Constitutional: Yes: Well Nourished, No Distress Eyes: Yes: WNL, Conjunctiva Clear, EOM Intact, PERRL HENT: Yes: Atraumatic, Normocephalic Neck: Yes: Supple, Trachea Midline Respiratory: Yes: Regular, CTA Bilaterally Gastrointestinal: Yes: Normal Bowel Sounds, Soft Renal/: Yes: WNL Cardiovascular: Yes: Regular Rate and Rhythm JVD: No Carotid Bruit: No PMI: Non-Displaced Heart Sounds: Yes: S1, S2 (No [place]) Musculoskeletal: Yes: Other (Left leg pain) Edema: No Peripheral Pulses WNL: Yes Neurological: Yes: Confusion - Other Data Labs, Other Data: CBC, BMP 09/27/16 11:10 INR, PTT INR 1.04 (0.82-1.09) 09/26/16 21:59 Sinus, APC, LAD, Normal ST-T Echo: Report Reviewed (Normal cardiac function from Echo April 2012.) Ejection Fraction %: LVEF > or = 40 % Imaging - Results EKG: Image Reviewed (Sinus, APCs, LAD, Normal ST-T.) Assessment/Plan 86-year-old with a PMHx of hypertension, DM, hyperlipidemia, CAD, dementia with behavioral disturbance, pressure ulcer of the left buttocks stage II and left intrertrochantric fracture s/p gamma nailing and repair on 09/09/2016, surgical course was complicated by left thigh cellulitis admitted 09/25/2016 with a unwitnessed fall. She was found to have left displaced femoral shaft fracture. Seen by orthopedics. Left femur ORIF is planned for 09/29/2016. Elevated pro-BNP noted. The patient has been comfortable without respiratory distress. ECG 09/27/2016 showed sinus rhythm, left axis deviation. APCs. No ST-T wave abnormalities. 1) Elevated pro-BNP: The patient has no respiratory distress or physical signs of CHF (fluid overload ). The elevated pro-BNP is likely due to increased left atrial pressure and LV diastolic dysfunction. 2) Syncope? The patient had recent left hip surgery readmitted after a fall. It is likely mechanical fall instead of syncope/LOC. 3) Pre-op: Patient has no symptoms of CHF. She denies chest pain. Her ECG shows normal sinus rhythm without evidence of myocardial ischemia. BP is well controlled. There are no direct cardiac controindications to the urgent operation. Tele shows sinus rhythm with occasional APCs. No significant arrhythmia noted. Tele can be discontinued. Please call us for reconsult as needed.
[2016-09-27] MEDS ORDERED: INSULIN (NOVOLOG) ASPART 100 UNITS/ML 10ML VIAL ONE (18:03)
[2016-09-27] MEDS: INSULIN SLIDING SCALE (NOVOLOG) 1 VIAL SQ SCH (18:13)
--- NOTE | 2016-09-27 18:38 | EKG ---
Test Reason : Blood Pressure : / mmHG Vent. Rate : 081 BPM Atrial Rate : 081 BPM P-R Int : 146 ms QRS Dur : 076 ms QT Int : 418 ms P-R-T Axes : 030 -40 014 degrees QTc Int : 485 ms SINUS RHYTHM WITH PREMATURE ATRIAL COMPLEXES LEFT AXIS DEVIATION ABNORMAL ECG WHEN COMPARED WITH ECG OF 08-SEP-2016 14:18, PREMATURE ATRIAL COMPLEXES ARE NOW PRESENT Confirmed by MORALES GALDAMEZ MD [id number]) on 09/27/2016 6:38:13 PM Referred By: Confirmed By:MORALES GALDAMEZ MD
[2016-09-27] MEDS ORDERED: INSULIN DETEMIR 100 UNITS/ML MDV SQ SCH (22:00)
[2016-09-27] MEDS ORDERED: ATORVASTATIN CA 10 MG TABLET (FP) PO SCH (22:00)
[2016-09-27] MEDS: HALOPERIDOL 5 MG TABLET (FP) PO SCH (22:40)
[2016-09-28] MEDS: morphine CARPU-JECT 2 MG/1 ML DISP.SYRIN IVPUSH PRN ×2 (05:03→12:30)
[2016-09-28] MEDS: QUEtiapine FUMARATE 25 MG TABLET (FP) PO SCH ×3 (06:42→22:29)
[2016-09-28] MEDS: INSULIN SLIDING SCALE (NOVOLOG) 1 VIAL SQ SCH ×2 (06:42→17:32)
[2016-09-28] MEDS ORDERED: PT OWN MED DRAWER 7, Y5N ONE ×2 (07:45→22:03)
[2016-09-28 08:06] LABS: MCH 24.2 pg (25.7-33.7); MCHC 31.6 g/dl (32.0-36.0); MEAN CELL VOLUME 76.5 fl (80-96); MEAN PLT VOLUME 8.8 fl (7.5-11.1); PLATELET COUNT 323 K/MM3 (134-434); RDW 20.6 % (11.6-15.6); WHITE BLOOD COUNT 8.6 K/mm3 (4.0-10.0)
[2016-09-28] MEDS: SENNOSIDES/DOCUSATE COMBO (SENNA PLUS) TABLET (UD) PO SCH ×2 (08:57→09:04)
[2016-09-28] MEDS: ENOXAPARIN NA (PORCINE) 30 MG/0.3 ML DISP.SYRIN SQ SCH ×2 (08:57→09:04)
[2016-09-28] MEDS: TRIHEXYPHENIDYL HCL 2 MG TABLET PO SCH ×2 (08:57→09:04)
[2016-09-28] MEDS: cloNIDine HCL 0.1 MG TABLET PO SCH ×3 (08:57→22:30)
[2016-09-28] MEDS: SERTRALINE HCL 25 MG TABLET (FP) PO SCH ×2 (08:57→09:04)
[2016-09-28] MEDS: ENALAPRIL MALEATE 10 MG TABLET (FP) PO SCH ×3 (08:57→22:30)
[2016-09-28] MEDS: POLYETHYLENE GLYCOL 3350 119 GM BTL PO SCH ×2 (08:58→09:04)
[2016-09-28] MEDS: HALOPERIDOL 5 MG TABLET (FP) PO SCH ×2 (08:59→22:29)
--- NOTE | 2016-09-28 09:30 | PN ---
Progress Note, Physician Chief Complaint: no complaints except for pain in left leg when touched - Current Medication List Current Medications: Active Medications Acetaminophen (Tylenol -) 325 mg PO BID PRN PRN Reason: PAIN Atorvastatin Calcium (Lipitor -) 10 mg PO HS [facility] Last Admin: 09/27/16 21:55 Dose: 10 mg Clonidine (Catapres -) 0.1 mg PO BID [facility] Last Admin: 09/28/16 09:04 Dose: Not Given Enalapril Maleate (Vasotec -) 10 mg PO BID [facility] Last Admin: 09/28/16 09:04 Dose: Not Given Enoxaparin Sodium (Lovenox -) 30 mg SQ DAILY [facility] Last Admin: 09/28/16 09:04 Dose: Not Given Haloperidol (Haldol -) 5 mg PO BID [facility] Last Admin: 09/28/16 08:59 Dose: Not Given Insulin Aspart (Novolog Vial Sliding Scale -) 1 vial SQ BIDAC [facility] PRN Reason: Protocol Last Admin: 09/28/16 06:42 Dose: 6 units Insulin Detemir (Levemir Vial) 6 units SQ [facility] Last Admin: 09/27/16 22:04 Dose: Not Given Morphine Sulfate (Morphine Injection -) 1 mg IVPUSH Q4H PRN PRN Reason: PAIN Last Admin: 09/28/16 05:03 Dose: 1 mg Oxycodone HCl (Roxicodone -) 5 mg PO BID PRN PRN Reason: PAIN Polyethylene Glycol (Miralax (For Daily Use) -) 17 gm PO DAILY [facility] Last Admin: 09/28/16 09:04 Dose: Not Given Quetiapine Fumarate (Seroquel -) 25 mg PO TID [facility] Last Admin: 09/28/16 06:42 Dose: Not Given Senna/Docusate Sodium (Pericolace -) 2 tablet PO DAILY [facility] Last Admin: 09/28/16 09:04 Dose: Not Given Sertraline HCl (Zoloft -) 25 mg PO DAILY [facility] Last Admin: 09/28/16 09:04 Dose: Not Given Trihexyphenidyl HCl (Artane -) 2 mg PO DAILY [facility] Last Admin: 09/28/16 09:04 Dose: Not Given - Objective Vital Signs: Vital Signs Temperature 99.2 F 09/28/16 05:31 Pulse Rate 88 09/28/16 05:31 Respiratory Rate 18 09/28/16 05:31 Blood Pressure 152/84 09/28/16 05:31 O2 Sat by Pulse Oximetry (%) 97 09/27/16 20:50 Constitutional: Yes: No Distress Cardiovascular: Yes: Regular Rate and Rhythm Respiratory: Yes: Diminished Gastrointestinal: Yes: Normal Bowel Sounds, Soft. No: Distention, Tenderness Edema: Yes (left leg ) Labs: CBC, BMP 09/28/16 05:42 09/27/16 19:45 INR, PTT INR 1.04 (0.82-1.09) 09/26/16 21:59 Problem List - Problems (1) Closed left femoral fracture Code(s): S72.92XA - UNSP FRACTURE OF LEFT FEMUR, INIT ENCNTR FOR CLOSED FRACTURE Qualifiers: Encounter type: initial encounter Femur location: shaft Fracture morphology: transverse Fracture alignment: displaced Qualified Code(s): S72.322A - Displaced transverse fracture of shaft of left femur, initial encounter for closed fracture (2) Chronic renal insufficiency, stage III (moderate) Code(s): N18.3 - CHRONIC KIDNEY DISEASE, STAGE 3 (MODERATE) (3) Coronary artery disease Code(s): I25.10 - ATHSCL HEART DISEASE OF [place] CORONARY ARTERY W/O ANG PCTRS (4) Dementia Code(s): F03.90 - UNSPECIFIED DEMENTIA WITHOUT BEHAVIORAL DISTURBANCE Assessment/Plan PLAN Pelvic CT noted- new communited fracture Has hematoma as well Unlikely to be cellulitis Ortho eval noted- Surgery for Thursday repeat CBC, if still low then needs transfusion Similar drop in last admission prior to surgery hold Plavix Pain control check doppler leg DVT prophylaxis-- Lovenox, may hold tomorrow's dose Cleared for surgery tomorrow as this is an urgent procedure
[2016-09-28 11:08] LABS: MCH 24.3 pg (25.7-33.7); MCHC 31.6 g/dl (32.0-36.0); MEAN CELL VOLUME 76.8 fl (80-96); MEAN PLT VOLUME 8.7 fl (7.5-11.1); PLATELET COUNT 294 K/MM3 (134-434); RDW 20.9 % (11.6-15.6); WHITE BLOOD COUNT 8.5 K/mm3 (4.0-10.0)
[2016-09-28] MEDS ORDERED: ACETAMINOPHEN 325 MG TABLET (FP) PO PRN (12:53)
[2016-09-28] MEDS ORDERED: oxyCODONE HCL 5 MG TABLET PO PRN (12:53)
[2016-09-28] MEDS ORDERED: morphine CARPU-JECT 2 MG/1 ML DISP.SYRIN IVPUSH PRN (12:53)
[2016-09-28] MEDS ORDERED: FUROSEMIDE 40 MG/4 ML INJECTABLE VIAL IVPB SCH (13:27)
[2016-09-28] MEDS: INSULIN DETEMIR 100 UNITS/ML MDV SQ SCH (22:28)
[2016-09-28] MEDS: ATORVASTATIN CA 10 MG TABLET (FP) PO SCH (22:29)
[2016-09-29] MEDS: INSULIN SLIDING SCALE (NOVOLOG) 1 VIAL SQ SCH ×2 (06:50→17:09)
[2016-09-29] MEDS: QUEtiapine FUMARATE 25 MG TABLET (FP) PO SCH ×3 (07:26→21:44)
--- NOTE | 2016-09-29 08:22 | PN ---
Progress Note (short form) - Note Progress Note: Ortho Pt seen and examined, received 2 units of PRBCs Selected Entries 09/29/16 06:00 Temperature 99.8 F H Pulse Rate 83 Respiratory 20 Rate Blood Pressure 156/79 L LE- + swelling, + ttp, shortened and ER nvi a/p OR today for left femur orif NPO hold AC d/w Dr. Salcedo
[2016-09-29 09:04] LABS: MCH 25.3 pg (25.7-33.7); MCHC 32.9 g/dl (32.0-36.0); MEAN PLT VOLUME 8.8 fl (7.5-11.1); PLATELET COUNT 304 K/MM3 (134-434); RDW 18.9 % (11.6-15.6); WHITE BLOOD COUNT 11.5 K/mm3 (4.0-10.0)
[2016-09-29 10:19] LABS: ANION GAP 7 (8-16); CALCIUM 8.7 mg/dL (8.5-10.1); CO2 33 mmol/L (21-32); CREATININE 1.3 mg/dL (0.55-1.02); GLUCOSE,RANDOM 82 mg/dL (74-106)
[2016-09-29] MEDS: ENALAPRIL MALEATE 10 MG TABLET (FP) PO SCH ×2 (11:14→21:44)
[2016-09-29] MEDS: HALOPERIDOL 5 MG TABLET (FP) PO SCH ×2 (11:14→21:44)
[2016-09-29] MEDS: TRIHEXYPHENIDYL HCL 2 MG TABLET PO SCH (11:15)
[2016-09-29] MEDS: cloNIDine HCL 0.1 MG TABLET PO SCH ×2 (11:15→21:44)
[2016-09-29] MEDS: ENOXAPARIN NA (PORCINE) 30 MG/0.3 ML DISP.SYRIN SQ SCH (13:07)
[2016-09-29] MEDS: SENNOSIDES/DOCUSATE COMBO (SENNA PLUS) TABLET (UD) PO SCH (13:13)
[2016-09-29] MEDS: POLYETHYLENE GLYCOL 3350 119 GM BTL PO SCH (13:13)
[2016-09-29] MEDS: SERTRALINE HCL 25 MG TABLET (FP) PO SCH (13:14)
--- NOTE | 2016-09-29 14:04 | PN ---
Progress Note, Physician Chief Complaint: s/p PRBC pulls out her iv lines - Current Medication List Current Medications: Active Medications Acetaminophen (Tylenol -) 325 mg PO BID PRN PRN Reason: PAIN Atorvastatin Calcium (Lipitor -) 10 mg PO HS [facility] Last Admin: 09/28/16 22:29 Dose: 10 mg Clonidine (Catapres -) 0.1 mg PO BID [facility] Last Admin: 09/29/16 11:15 Dose: 0.1 mg Enalapril Maleate (Vasotec -) 10 mg PO BID [facility] Last Admin: 09/29/16 11:14 Dose: 10 mg Enoxaparin Sodium (Lovenox -) 30 mg SQ DAILY [facility] Last Admin: 09/29/16 13:07 Dose: Not Given Haloperidol (Haldol -) 5 mg PO BID [facility] Last Admin: 09/29/16 11:14 Dose: 5 mg Insulin Aspart (Novolog Vial Sliding Scale -) 1 vial SQ BIDAC [facility] PRN Reason: Protocol Last Admin: 09/29/16 06:50 Dose: Not Given Insulin Detemir (Levemir Vial) 6 units SQ HS [facility] Last Admin: 09/28/16 22:28 Dose: 6 units Morphine Sulfate (Morphine Injection -) 1 mg IVPUSH Q4H PRN PRN Reason: PAIN Oxycodone HCl (Roxicodone -) 5 mg PO BID PRN PRN Reason: PAIN Polyethylene Glycol (Miralax (For Daily Use) -) 17 gm PO DAILY [facility] Last Admin: 09/29/16 13:13 Dose: Not Given Quetiapine Fumarate (Seroquel -) 25 mg PO TID [facility] Last Admin: 09/29/16 07:26 Dose: Not Given Senna/Docusate Sodium (Pericolace -) 2 tablet PO DAILY [facility] Last Admin: 09/29/16 13:13 Dose: Not Given Sertraline HCl (Zoloft -) 25 mg PO DAILY [facility] Last Admin: 09/29/16 13:14 Dose: Not Given Trihexyphenidyl HCl (Artane -) 2 mg PO DAILY [facility] Last Admin: 09/29/16 11:15 Dose: 2 mg - Objective Vital Signs: Vital Signs Temperature 99.8 F H 09/29/16 06:00 Pulse Rate 83 09/29/16 06:00 Respiratory Rate 20 09/29/16 06:00 Blood Pressure 156/79 09/29/16 06:00 O2 Sat by Pulse Oximetry (%) 98 09/28/16 21:00 Constitutional: Yes: No Distress Cardiovascular: Yes: Regular Rate and Rhythm Respiratory: Yes: CTA Bilaterally Gastrointestinal: Yes: Normal Bowel Sounds, Soft. No: Distention, Tenderness Edema: Yes Edema: LLE: 2+ Labs: CBC, BMP 09/29/16 08:45 09/29/16 08:45 INR, PTT INR 1.04 (0.82-1.09) 09/26/16 21:59 Problem List - Problems (1) Closed left femoral fracture Code(s): S72.92XA - UNSP FRACTURE OF LEFT FEMUR, INIT ENCNTR FOR CLOSED FRACTURE Qualifiers: Encounter type: initial encounter Femur location: shaft Fracture morphology: transverse Fracture alignment: displaced Qualified Code(s): S72.322A - Displaced transverse fracture of shaft of left femur, initial encounter for closed fracture (2) Chronic renal insufficiency, stage III (moderate) Code(s): N18.3 - CHRONIC KIDNEY DISEASE, STAGE 3 (MODERATE) (3) Coronary artery disease Code(s): I25.10 - ATHSCL HEART DISEASE OF [place] CORONARY ARTERY W/O ANG PCTRS (4) Dementia Code(s): F03.90 - UNSPECIFIED DEMENTIA WITHOUT BEHAVIORAL DISTURBANCE Assessment/Plan PLAN Pelvic CT noted- new communited fracture Has hematoma as well Unlikely to be cellulitis Ortho eval noted- Surgery for Thursday s/p 2 units pRBC hold Plavix Pain control check doppler leg DVT prophylaxis-- Lovenox, may hold tomorrow's dose pt has no family, consent is from Dr Lundy - her [place] PMD and myself as concurring physician Cleared for surgery tomorrow as this is an urgent procedure
[2016-09-29] MEDS ORDERED: LORazepam 2 MG/ML SDV VIAL IM PRN (14:11)
[2016-09-29] MEDS: ATORVASTATIN CA 10 MG TABLET (FP) PO SCH (21:44)
[2016-09-29] MEDS: INSULIN DETEMIR 100 UNITS/ML MDV SQ SCH (21:49)
[2016-09-30] MEDS ORDERED: PT OWN MED DRAWER 7, Y5N ONE ×3 (05:59→21:21)
[2016-09-30] MEDS: QUEtiapine FUMARATE 25 MG TABLET (FP) PO SCH ×3 (06:11→22:45)
[2016-09-30] MEDS: INSULIN SLIDING SCALE (NOVOLOG) 1 VIAL SQ SCH ×2 (06:11→15:39)
[2016-09-30 08:34] LABS: MCH 25.1 pg (25.7-33.7); MCHC 32.1 g/dl (32.0-36.0); MEAN CELL VOLUME 78.3 fl (80-96); MEAN PLT VOLUME 8.9 fl (7.5-11.1); PLATELET COUNT 281 K/MM3 (134-434); RDW 19.1 % (11.6-15.6); WHITE BLOOD COUNT 10.2 K/mm3 (4.0-10.0)
[2016-09-30] MEDS: HALOPERIDOL 5 MG TABLET (FP) PO SCH ×2 (09:40→22:31)
[2016-09-30] MEDS: SERTRALINE HCL 25 MG TABLET (FP) PO SCH (09:40)
[2016-09-30] MEDS: TRIHEXYPHENIDYL HCL 2 MG TABLET PO SCH (09:40)
[2016-09-30] MEDS: ENALAPRIL MALEATE 10 MG TABLET (FP) PO SCH ×2 (09:40→22:30)
[2016-09-30] MEDS: cloNIDine HCL 0.1 MG TABLET PO SCH ×2 (09:41→22:30)
[2016-09-30] MEDS: ENOXAPARIN NA (PORCINE) 30 MG/0.3 ML DISP.SYRIN SQ SCH (10:27)
[2016-09-30] MEDS: POLYETHYLENE GLYCOL 3350 119 GM BTL PO SCH (10:27)
[2016-09-30] MEDS: SENNOSIDES/DOCUSATE COMBO (SENNA PLUS) TABLET (UD) PO SCH (10:27)
--- NOTE | 2016-09-30 10:48 | PN ---
Progress Note, Physician Chief Complaint: pulls out her iv lines NPO scheduled for OR today wants to get out of bed - Current Medication List Current Medications: Active Medications Acetaminophen (Tylenol -) 325 mg PO BID PRN PRN Reason: PAIN Last Admin: 09/29/16 21:48 Dose: 325 mg Atorvastatin Calcium (Lipitor -) 10 mg PO HS [facility] Last Admin: 09/29/16 21:44 Dose: 10 mg Clonidine (Catapres -) 0.1 mg PO BID [facility] Last Admin: 09/30/16 09:41 Dose: 0.1 mg Enalapril Maleate (Vasotec -) 10 mg PO BID [facility] Last Admin: 09/30/16 09:40 Dose: 10 mg Enoxaparin Sodium (Lovenox -) 30 mg SQ DAILY [facility] Last Admin: 09/30/16 10:27 Dose: Not Given Haloperidol (Haldol -) 5 mg PO BID [facility] Last Admin: 09/30/16 09:40 Dose: 5 mg Insulin Aspart (Novolog Vial Sliding Scale -) 1 vial SQ BIDAC [facility] PRN Reason: Protocol Last Admin: 09/30/16 06:11 Dose: Not Given Insulin Detemir (Levemir Vial) 6 units SQ [facility] Last Admin: 09/29/16 21:49 Dose: Not Given Lorazepam (Ativan Injection -) 1 mg IM TID PRN PRN Reason: ANXIETY Morphine Sulfate (Morphine Injection -) 1 mg IVPUSH Q4H PRN PRN Reason: PAIN Oxycodone HCl (Roxicodone -) 5 mg PO BID PRN PRN Reason: PAIN Last Admin: 09/29/16 21:49 Dose: 5 mg Polyethylene Glycol (Miralax (For Daily Use) -) 17 gm PO DAILY [facility] Last Admin: 09/30/16 10:27 Dose: Not Given Quetiapine Fumarate (Seroquel -) 25 mg PO TID [facility] Last Admin: 09/30/16 06:11 Dose: Not Given Senna/Docusate Sodium (Pericolace -) 2 tablet PO DAILY [facility] Last Admin: 09/30/16 10:27 Dose: Not Given Sertraline HCl (Zoloft -) 25 mg PO DAILY [facility] Last Admin: 09/30/16 09:40 Dose: 25 mg Trihexyphenidyl HCl (Artane -) 2 mg PO DAILY [facility] Last Admin: 09/30/16 09:40 Dose: 2 mg - Objective Vital Signs: Vital Signs Temperature 99.3 F 09/30/16 06:00 Pulse Rate 86 09/30/16 06:00 Respiratory Rate 18 09/30/16 06:00 Blood Pressure 157/77 09/30/16 06:00 O2 Sat by Pulse Oximetry (%) 98 09/29/16 21:00 Constitutional: Yes: No Distress Cardiovascular: Yes: Regular Rate and Rhythm Respiratory: Yes: Diminished Gastrointestinal: Yes: Normal Bowel Sounds, Soft. No: Distention, Tenderness Edema: Yes Edema: LLE: 2+ Labs: CBC, BMP 09/30/16 07:00 09/29/16 08:45 INR, PTT INR 1.04 (0.82-1.09) 09/26/16 21:59 Problem List - Problems (1) Closed left femoral fracture Code(s): S72.92XA - UNSP FRACTURE OF LEFT FEMUR, INIT ENCNTR FOR CLOSED FRACTURE Qualifiers: Encounter type: initial encounter Femur location: shaft Fracture morphology: transverse Fracture alignment: displaced Qualified Code(s): S72.322A - Displaced transverse fracture of shaft of left femur, initial encounter for closed fracture (2) Chronic renal insufficiency, stage III (moderate) Code(s): N18.3 - CHRONIC KIDNEY DISEASE, STAGE 3 (MODERATE) (3) Coronary artery disease Code(s): I25.10 - ATHSCL HEART DISEASE OF [place] CORONARY ARTERY W/O ANG PCTRS (4) Dementia Code(s): F03.90 - UNSPECIFIED DEMENTIA WITHOUT BEHAVIORAL DISTURBANCE Assessment/Plan PLAN Pelvic CT noted- new communited fracture Has hematoma as well Unlikely to be cellulitis Ortho eval noted- Surgery for Thursday s/p 2 units pRBC hold Plavix Pain control check doppler leg-- negative for DVT DVT prophylaxis-- Lovenox, may hold today's dose pt has no family, consent is from Dr Lundy - her [place] PMD and myself as concurring physician Cleared for surgery today as this is an urgent procedure
[2016-09-30] MEDS ORDERED: DEXTROSE 5%-0.45% SALINE 1,000 ML IV SCH ×2 (11:15→17:53)
[2016-09-30] MEDS ORDERED: PROPOFOL 20 ML ONE ×2 (15:43)
[2016-09-30] MEDS ORDERED: ceFAZolin SODIUM 1 GM VIAL IVPB ONE (16:02)
[2016-09-30] MEDS ORDERED: ceFAZolin SODIUM 1 GM VIAL ONE (16:02)
[2016-09-30] MEDS ORDERED: ONDANSETRON 4 MG/2 ML VIAL ONE (17:06)
--- NOTE | 2016-09-30 17:28 | OP ---
Operative Note - Note: Operative Date: 09/30/16 Pre-Operative Diagnosis: left femoral shaft fx below short gamma nail Operation: removal of gamma nail the IM nailing of fx Post-Operative Diagnosis: Same as Pre-op Surgeon: Josh Salcedo Anesthesia: General Blood Volume Replaced (mls): 300 Operative Report Dictated: Yes
[2016-09-30] MEDS ORDERED: LACTATED RINGERS SOLUTION 1,000 ML IV SCH ×4 (17:30→20:00)
[2016-09-30] MEDS ORDERED: ACETAMINOPHEN 325 MG TABLET (FP) PO PRN (17:53)
[2016-09-30] MEDS ORDERED: oxyCODONE HCL 5 MG TABLET PO PRN (17:53)
[2016-09-30] MEDS ORDERED: morphine CARPU-JECT 2 MG/1 ML DISP.SYRIN IVPUSH PRN (17:53)
[2016-09-30] MEDS ORDERED: LORazepam 2 MG/ML SDV VIAL IM PRN (17:53)
[2016-09-30] MEDS ORDERED: CEFAZOLIN 1 GM in DEXTROSE 5%-WATER - 50 ML IVPB SCH (18:00)
[2016-09-30 18:43] LABS: MCH 24.8 pg (25.7-33.7); MCHC 31.4 g/dl (32.0-36.0); MEAN PLT VOLUME 8.9 fl (7.5-11.1); PLATELET COUNT 325 K/MM3 (134-434); RDW 19.3 % (11.6-15.6); WHITE BLOOD COUNT 10.5 K/mm3 (4.0-10.0)
[2016-09-30] MEDS: CEFAZOLIN 1 GM in DEXTROSE 5%-WATER - 50 ML IVPB SCH (20:21)
[2016-09-30] MEDS: ATORVASTATIN CA 10 MG TABLET (FP) PO SCH (21:23)
[2016-09-30] MEDS: INSULIN DETEMIR 100 UNITS/ML MDV SQ SCH (21:31)
[2016-10-01] MEDS ORDERED: ceFAZolin SODIUM 1 GM VIAL ONE (01:06)
[2016-10-01] MEDS ORDERED: DEXTROSE 5%-WATER - 50 ML IVPB ONE (01:06)
[2016-10-01] MEDS ORDERED: INSULIN (NOVOLOG) ASPART 100 UNITS/ML 10ML VIAL ONE (06:09)
[2016-10-01] MEDS ORDERED: INSULIN SLIDING SCALE (NOVOLOG) 1 VIAL SQ SCH ×2 (07:00→13:15)
[2016-10-01] MEDS: QUEtiapine FUMARATE 25 MG TABLET (FP) PO SCH ×3 (07:39→22:26)
[2016-10-01] MEDS: CEFAZOLIN 1 GM in DEXTROSE 5%-WATER - 50 ML IVPB SCH (07:39)
[2016-10-01 08:16] LABS: MCH 25.1 pg (25.7-33.7); MCHC 32.4 g/dl (32.0-36.0); MEAN CELL VOLUME 77.2 fl (80-96); MEAN PLT VOLUME 8.6 fl (7.5-11.1); PLATELET COUNT 248 K/MM3 (134-434); RDW 19.4 % (11.6-15.6)
[2016-10-01 09:05] LABS: ANION GAP 8 (8-16); CALCIUM 7.6 mg/dL (8.5-10.1); CO2 29 mmol/L (21-32); CREATININE 1.4 mg/dL (0.55-1.02)
--- NOTE | 2016-10-01 09:17 | PN ---
Progress Note (short form) - Note Progress Note: Ortho Pt seen and examined s/p left femur removal of hardware and long gamma nail pod #1 Selected Entries 10/01/16 06:00 Temperature 98.9 F Pulse Rate 99 H Respiratory 20 Rate Blood Pressure 151/88 Laboratory Tests 10/01/16 06:30 WBC 8.0 Hgb 7.5 L D Hct 23.1 L D Plt Count 248 D dressing c/d/i, calf soft, nt nvi a/p Transfuse 1 unit of PRBCs due to acute blood loss anemia f/u h/h Pt if able, PWB dvt ppx pain control d/c planning
--- NOTE | 2016-10-01 09:18 | OP ---
DATE OF OPERATION: 09/30/2016 PREOPERATIVE DIAGNOSIS: Left femoral shaft fracture below a short Gamma nail. POSTOPERATIVE DIAGNOSIS: Left femoral shaft fracture below a short Gamma nail. PROCEDURE: Removal of Gamma nail and replacement with a long intramedullary nail. SURGICAL ATTENDING: Josh Salcedo MD ANESTHESIA: General with endotracheal intubation. POSITION: Supine on the fracture table. CLOSURE: Long Gamma nail of appropriate length and appropriate locking screws, No. 1 Vicryl for fascia, 0 and 2-0 for subcutaneous, leslye for skin. ESTIMATED BLOOD LOSS: Approximately 300 mL. COMPLICATIONS: None. CONDITION: To recovery room in stable condition. DESCRIPTION OF PROCEDURE: Patient was taken to the operating room on September 30, 2016. General anesthesia was administered by the anesthesiologist. IV Kefzol was prophylactically administered prior to the case. Patient was passed onto the fracture table with all prominences well padded. The left thigh region was prepped in the usual sterile fashion. A 5-cm longitudinal incision over the fracture in the shaft was incised. Hemostasis was achieved with Bovie cautery, and sharp dissection was carried down through the fascia. A lumen clamp was placed around the fracture and was used to help provisional fixation of the fracture. Next, our attention was directed proximally. The proximal incision where the aniceto was inserted was opened with a 10 blade followed by Bovie cautery. Blunt dissection was carried down to the top of the aniceto. A set screw was dislodged by using a screwdriver. Then, a small stab incision over where the lag screw was placed was made. Blunt dissection was carried down to the lag screw. The lag screw was then removed. Another stab incision over the distal locking screw was made, and that screw was removed, as well. An extractor device was placed from above, and that was used to extract the aniceto. A long guidewire was placed down the shaft past the fracture into the distal fragment. Confirmation confirmed of the AP and lateral planes by using the image intensifier. A long Gamma nail of the appropriate length was then malletted into place. The outrigger was used to place a lag screw back up in the exact position where it was with the short lag screw achieving excellent fixation in the neck. The intertrochanteric fracture that was healing was compressed using compression devices, and a set screw as placed from above in a dynamic fashion. Using standard free-hand technique, two distal screws were placed laterally and medially to stab incisions achieving excellent fixation. All incisions were irrigated with copious amounts of irrigation. The fascia was closed with 0 Vicryl, 2-0 for subcutaneous, and leslye for skin. A sterile pressure dressing was applied. The patient was awakened from anesthesia and transferred to recovery room in stable condition. No complications. Estimated blood loss approximately 300 mL. Tyrell [id number]
[2016-10-01] MEDS ORDERED: ASPIRIN 325 MG TABLET PO SCH (10:00)
[2016-10-01 10:05] LABS: GLUCOSE,RANDOM 325 mg/dL (74-106)
[2016-10-01] MEDS ORDERED: FUROSEMIDE 40 MG/4 ML INJECTABLE VIAL IVPB ONE (10:40)
--- NOTE | 2016-10-01 10:40 | PN ---
Progress Note, Physician Chief Complaint: s/p gamma nail POD #1 no distress - Current Medication List Current Medications: Active Medications Acetaminophen (Tylenol -) 325 mg PO BID PRN PRN Reason: PAIN Last Admin: 09/30/16 21:24 Dose: 325 mg Aspirin (Asa -) 325 mg PO DAILY [facility] Atorvastatin Calcium (Lipitor -) 10 mg PO HS [facility] Last Admin: 09/30/16 21:23 Dose: 10 mg Clonidine (Catapres -) 0.1 mg PO BID [facility] Last Admin: 09/30/16 22:30 Dose: 0.1 mg Enalapril Maleate (Vasotec -) 10 mg PO BID [facility] Last Admin: 09/30/16 22:30 Dose: 10 mg Enoxaparin Sodium (Lovenox -) 30 mg SQ DAILY [facility] Fentanyl (Sublimaze Injection -) 25 mcg IVPUSH [id number] PRN PRN Reason: PAIN Stop: 10/03/16 17:35 Last Admin: 09/30/16 18:55 Dose: 25 mcg Haloperidol (Haldol -) 5 mg PO BID [facility] Last Admin: 09/30/16 22:31 Dose: 5 mg Lactated Ringer's (Lactated Ringers Solution) 1,000 mls @ 75 mls/hr IV ASDIR [facility] Last Admin: 09/30/16 22:31 Dose: 75 mls/hr Lactated Ringer's (Lactated Ringers Solution) 1,000 mls @ 75 mls/hr IV ASDIR [facility] Insulin Aspart (Novolog Vial Sliding Scale -) [facility] Reason: Protocol Last Admin: 10/01/16 08:24 Dose: 8 units Insulin Detemir (Levemir Vial) 6 units SQ [facility] Last Admin: 09/30/16 21:31 Dose: 6 units Lorazepam (Ativan Injection -) 1 mg IM TID PRN PRN Reason: ANXIETY Last Admin: 09/30/16 21:23 Dose: 1 mg Morphine Sulfate (Morphine Injection -) 1 mg IVPUSH Q4H PRN PRN Reason: PAIN Oxycodone HCl (Roxicodone -) 5 mg PO BID PRN PRN Reason: PAIN Last Admin: 09/30/16 21:24 Dose: 5 mg Polyethylene Glycol (Miralax (For Daily Use) -) 17 gm PO DAILY [facility] Quetiapine Fumarate (Seroquel -) 25 mg PO TID [facility] Last Admin: 10/01/16 07:39 Dose: Not Given Senna/Docusate Sodium (Pericolace -) 2 tablet PO DAILY [facility] Sertraline HCl (Zoloft -) 25 mg PO DAILY [facility] Trihexyphenidyl HCl (Artane -) 2 mg PO DAILY [facility] - Objective Vital Signs: Vital Signs Temperature 99.7 F H 10/01/16 10:00 Pulse Rate 100 H 10/01/16 10:00 Respiratory Rate 20 10/01/16 10:00 Blood Pressure 125/67 10/01/16 10:00 O2 Sat by Pulse Oximetry (%) 98 09/30/16 21:00 Cardiovascular: Yes: Regular Rate and Rhythm Respiratory: Yes: CTA Bilaterally Gastrointestinal: Yes: Normal Bowel Sounds, Soft. No: Tenderness Edema: Yes Edema: LLE: 2+ Labs: CBC, BMP 10/01/16 06:30 10/01/16 07:05 INR, PTT INR 1.04 (0.82-1.09) 09/26/16 21:59 Problem List - Problems (1) Closed left femoral fracture Code(s): S72.92XA - UNSP FRACTURE OF LEFT FEMUR, INIT ENCNTR FOR CLOSED FRACTURE Qualifiers: Encounter type: initial encounter Femur location: shaft Fracture morphology: transverse Fracture alignment: displaced Qualified Code(s): S72.322A - Displaced transverse fracture of shaft of left femur, initial encounter for closed fracture (2) Chronic renal insufficiency, stage III (moderate) Code(s): N18.3 - CHRONIC KIDNEY DISEASE, STAGE 3 (MODERATE) (3) Coronary artery disease Code(s): I25.10 - ATHSCL HEART DISEASE OF [place] CORONARY ARTERY W/O ANG PCTRS (4) Dementia Code(s): F03.90 - UNSPECIFIED DEMENTIA WITHOUT BEHAVIORAL DISTURBANCE Assessment/Plan PLAN s/p gamma nailing-- extends down to distal femur on ASA 325mg and Lovenox for transfusion today Pain control check doppler leg-- negative for DVT DVT prophylaxis-- Lovenox and ASA PT eval restraints to be reapplied as pt removes her iv lines and tries to get OOB
[2016-10-01] MEDS: ASPIRIN 325 MG TABLET PO SCH (10:55)
[2016-10-01] MEDS: SENNOSIDES/DOCUSATE COMBO (SENNA PLUS) TABLET (UD) PO SCH (10:55)
[2016-10-01] MEDS: ENALAPRIL MALEATE 10 MG TABLET (FP) PO SCH ×2 (10:55→22:31)
[2016-10-01] MEDS: SERTRALINE HCL 25 MG TABLET (FP) PO SCH (10:55)
[2016-10-01] MEDS: TRIHEXYPHENIDYL HCL 2 MG TABLET PO SCH (10:55)
[2016-10-01] MEDS: ENOXAPARIN NA (PORCINE) 30 MG/0.3 ML DISP.SYRIN SQ SCH (10:56)
[2016-10-01] MEDS: POLYETHYLENE GLYCOL 3350 119 GM BTL PO SCH (10:56)
[2016-10-01] MEDS: cloNIDine HCL 0.1 MG TABLET PO SCH ×2 (10:56→22:25)
[2016-10-01] MEDS: HALOPERIDOL 5 MG TABLET (FP) PO SCH ×2 (10:56→22:25)
--- NOTE | 2016-10-01 10:58 | PN ---
Progress Note, Physician Chief Complaint: Pt. resting comfortably, pain controlled, no anesthesia complaints. - Current Medication List Current Medications: Active Medications Acetaminophen (Tylenol -) 325 mg PO BID PRN PRN Reason: PAIN Last Admin: 09/30/16 21:24 Dose: 325 mg Aspirin (Asa -) 325 mg PO DAILY [facility] Atorvastatin Calcium (Lipitor -) 10 mg PO HS [facility] Last Admin: 09/30/16 21:23 Dose: 10 mg Clonidine (Catapres -) 0.1 mg PO BID [facility] Last Admin: 09/30/16 22:30 Dose: 0.1 mg Enalapril Maleate (Vasotec -) 10 mg PO BID [facility] Last Admin: 09/30/16 22:30 Dose: 10 mg Enoxaparin Sodium (Lovenox -) 30 mg SQ DAILY [facility] Fentanyl (Sublimaze Injection -) 25 mcg IVPUSH [id number] PRN PRN Reason: PAIN Stop: 10/03/16 17:35 Last Admin: 09/30/16 18:55 Dose: 25 mcg Furosemide (Lasix Injection -) 40 mg IVPB ONCE ONE Stop: 10/01/16 10:41 Haloperidol (Haldol -) 5 mg PO BID [facility] Last Admin: 09/30/16 22:31 Dose: 5 mg Insulin Aspart (Novolog Vial Sliding Scale -) [facility] PRN Reason: Protocol Last Admin: 10/01/16 08:24 Dose: 8 units Insulin Detemir (Levemir Vial) 6 units SQ [facility] Last Admin: 09/30/16 21:31 Dose: 6 units Lorazepam (Ativan Injection -) 1 mg IM TID PRN PRN Reason: ANXIETY Last Admin: 09/30/16 21:23 Dose: 1 mg Morphine Sulfate (Morphine Injection -) 1 mg IVPUSH Q4H PRN PRN Reason: PAIN Oxycodone HCl (Roxicodone -) 5 mg PO BID PRN PRN Reason: PAIN Last Admin: 09/30/16 21:24 Dose: 5 mg Polyethylene Glycol (Miralax (For Daily Use) -) 17 gm PO DAILY [facility] Quetiapine Fumarate (Seroquel -) 25 mg PO TID [facility] Last Admin: 10/01/16 07:39 Dose: Not Given Senna/Docusate Sodium (Pericolace -) 2 tablet PO DAILY [facility] Sertraline HCl (Zoloft -) 25 mg PO DAILY [facility] Trihexyphenidyl HCl (Artane -) 2 mg PO DAILY [facility] - Objective Vital Signs: Vital Signs Temperature 99.7 F H 10/01/16 10:00 Pulse Rate 100 H 10/01/16 10:00 Respiratory Rate 20 10/01/16 10:00 Blood Pressure 125/67 10/01/16 10:00 O2 Sat by Pulse Oximetry (%) 98 09/30/16 21:00 Constitutional: Yes: Well Nourished, No Distress, Calm Musculoskeletal: Yes: WNL Neurological: Yes: Alert Labs: CBC, BMP 10/01/16 06:30 10/01/16 07:05 INR, PTT INR 1.04 (0.82-1.09) 09/26/16 21:59 Assessment/Plan POD#1 s/p Left femur gamma nailing redo under [place]. Doing well. D/C from anesthesia care.
[2016-10-01] MEDS: INSULIN SLIDING SCALE (NOVOLOG) 1 VIAL SQ SCH (17:57)
[2016-10-01] MEDS ORDERED: PT OWN MED DRAWER 7, Y5N ONE ×2 (22:22→22:29)
[2016-10-01] MEDS: ATORVASTATIN CA 10 MG TABLET (FP) PO SCH (22:25)
[2016-10-01] MEDS: INSULIN DETEMIR 100 UNITS/ML MDV SQ SCH (22:26)
[2016-10-02] MEDS: QUEtiapine FUMARATE 25 MG TABLET (FP) PO SCH ×2 (06:22→14:29)
[2016-10-02] MEDS: INSULIN SLIDING SCALE (NOVOLOG) 1 VIAL SQ SCH ×2 (06:23→12:03)
[2016-10-02] MEDS ORDERED: INSULIN (NOVOLOG) ASPART 100 UNITS/ML 10ML VIAL ONE ×2 (06:55→12:03)
[2016-10-02 08:43] LABS: MCH 25.7 pg (25.7-33.7); MCHC 32.7 g/dl (32.0-36.0); MEAN CELL VOLUME 78.6 fl (80-96); PLATELET COUNT 214 K/MM3 (134-434); RDW 18.4 % (11.6-15.6); WHITE BLOOD COUNT 11.3 K/mm3 (4.0-10.0)
--- NOTE | 2016-10-02 08:58 | PN ---
Progress Note (short form) - Note Progress Note: AVSS COMFORTABLE BANDAGES DRY AND INTACT CALF SOFT AND NT HCT=25 IMP: DOING WELL PLAN: TRANSFER BACK TO [place] WHEN MEDICALLY OK
[2016-10-02 09:05] LABS: ANION GAP 8 (8-16); CO2 29 mmol/L (21-32); CREATININE 1.3 mg/dL (0.55-1.02); GLUCOSE,RANDOM 75 mg/dL (74-106)
[2016-10-02] MEDS ORDERED: PT OWN MED DRAWER 7, Y5N ONE (10:14)
[2016-10-02] MEDS: SERTRALINE HCL 25 MG TABLET (FP) PO SCH (10:15)
[2016-10-02] MEDS: ASPIRIN 325 MG TABLET PO SCH (10:15)
[2016-10-02] MEDS: SENNOSIDES/DOCUSATE COMBO (SENNA PLUS) TABLET (UD) PO SCH (10:15)
[2016-10-02] MEDS: ENALAPRIL MALEATE 10 MG TABLET (FP) PO SCH (10:16)
[2016-10-02] MEDS: cloNIDine HCL 0.1 MG TABLET PO SCH (10:16)
[2016-10-02] MEDS: HALOPERIDOL 5 MG TABLET (FP) PO SCH (10:16)
[2016-10-02] MEDS: TRIHEXYPHENIDYL HCL 2 MG TABLET PO SCH (10:17)
--- NOTE | 2016-10-02 10:22 | DS ---
Physical Examination Vital Signs: Vital Signs Temperature 99.2 F 10/02/16 09:26 Pulse Rate 104 H 10/02/16 09:26 Respiratory Rate 20 10/02/16 09:26 Blood Pressure 154/90 10/02/16 09:26 O2 Sat by Pulse Oximetry (%) 96 10/01/16 21:04 Constitutional: Yes: No Distress, Calm Cardiovascular: Yes: Regular Rate and Rhythm Respiratory: Yes: CTA Bilaterally Gastrointestinal: Yes: Normal Bowel Sounds, Soft. No: Distention, Tenderness Edema: Yes Edema: LLE: 2+ Labs: CBC, BMP 10/02/16 07:30 10/02/16 07:30 Discharge Summary Reason For Visit: ACUTE CLOSED FEMUR, CHF, CELLULITIS Current Active Problems CHF (congestive heart failure) (Acute) Cellulitis and abscess of left leg (Acute) Closed left femoral fracture (Acute) Fall in elderly patient (Acute) Hospital Course: Admitting History-- -- 86-year-old female with history left intrertrochantric fracture s/p gamma nailing and repair on 09/09, surgical course was complicated by left thigh cellulitis. Patient sent from [facility] status post unwitnessed fall. As per her nurse patient was found near the door laying on the left side. Patient now complaining of left leg pain. Patient is alert oriented 2 does not recall a course of events. Patient has a past medical history hypertension, type 1 diabetes, CAD, hyperlipidemia, dementia with behavioral disturbance, pressure ulcer of the left buttocks stage II. Pt examined by me in the floors Known to me from previous admission Spoke to her PMD at [facility] yesterday-- Dr mendez--who told me that pt fell and c/o severe thigh pain Pt restrained as she is pulling out her IV lines She is AAOx2 Hospitalization Course-- Seen by Ortho-- has a new fracture distal to the previous fracture -- received PRBC due to blood loss after acute fracture. Gamma nailing done-- extends to distal femur. Pt has tendency to pick at her leslye-- was on IV Ancef-- will start her on PO antibiotics-- has low grade fever . stable for dc to NH on PO antibiotics. Condition: Improved - Instructions Referrals: Selvin Mendez MD [Primary Care Provider] - Disposition: [facility]FWAY FACILITY - Home Medications Comprehensive Discharge Medication List: Ambulatory Orders Clonidine HCl [Clonidine HCl ER] 0.1 mg PO BID 09/07/16 Clopidogrel Bisulfate [Plavix -] 75 mg PO DAILY 09/07/16 Enalapril Maleate [Vasotec] 10 mg PO BID 09/07/16 Haloperidol [Haldol -] 5 mg PO BID 09/07/16 Insulin Regular, Human [Humulin R U-500 Kwikpen] 0 unit SQ QID 09/07/16 Multivitamin-Min/Iron/FA/Vit K [Multi-Day Plus Minerals Tablet] 1 each PO DAILY 09/07/16 Petrolatum,White/Lanolin [Vitamin A & D Ointment] 454 gm TP TID 09/07/16 Quetiapine Fumarate [Seroquel -] 25 mg PO TID 09/07/16 Sennosides/Docusate Sodium [Senna Laxative Tablet] 2 each PO DAILY 09/07/16 Sertraline HCl [Zoloft] 25 mg PO DAILY 09/07/16 Simvastatin [Zocor -] 20 mg PO HS 09/07/16 Trihexyphenidyl HCl 2 mg PO DAILY 09/07/16 Enoxaparin [Lovenox -] 30 mg SQ DAILY #30 amp 09/15/16 Insulin (Levemir) [Levemir Vial] 6 units SQ HS ml 09/15/16 Polyethylene Glycol 3350 [Miralax 119 gm Btl -] 17 gm PO DAILY #1 bottle Oxycodone HCl/Acetaminophen [Percocet 5-325 mg Tablet] 1 tab PO BID 09/26/16
[2016-10-02] MEDS: POLYETHYLENE GLYCOL 3350 119 GM BTL PO SCH (10:25)
[2016-10-02] MEDS: ENOXAPARIN NA (PORCINE) 30 MG/0.3 ML DISP.SYRIN SQ SCH (10:26)
[2016-10-02] MEDS ORDERED: VANCOMYCIN 1 GRAM (PRE-DOCKED) 250 ML IVPB ONE (12:00)
[2016-10-02 14:37] VITALS: BP 144/67; PULSE 86; TEMP 98.9
--- NOTE | 2016-10-03 11:31 | PATH ---
Surgical Pathology Report Patient Name: PORSHA HINTON Med. Rec. #: [id number] /Age/Gender: 1930 (Age: 86) / F Account: [id number] Location: [address] [place] [address] Taken: 10/01/2016 Received: 10/01/2016 Reported: 10/03/2016 Physicians: Josh Salcedo M.D. Specimen(s) Received HARDWARE LEFT FEMUR Clinical History Left femur fracture Final Diagnosis ORTHOPEDIC HARDWARE, LEFT FEMUR, REMOVAL: METALLIC SHAFT AND 2 METALLIC SCREWS CONSISTENT WITH ORTHOPEDIC HARDWARE (GROSS ONLY). Electronically Signed Gianluca Ramirez M.D. Gross Description Received without fixative, labeled "hardware left femur" is a 17 cm in length, mcdowell metallic shaft labeled, gamma 3 TI, along with 9.5 cm in length and 1 cm in diameter mcdowell metallic screw and a 1.5 cm in length and 0.7 cm in diameter mcdowell metallic screw. The specimen is for gross examination only. AF/10/01/2016 final/10/01/2016
== END 2016-10-02 16:15 | DRG 481 ==
LOC: JER 20:43 → JERBED 09-27 01:15 → UNDOADMIN 09-27 01:27 → J4W 09-27 04:16 → J6S 09-28 12:38
PROVIDERS: ADMIT Internal Medicine; ATTEND Internal Medicine
PROC: 30233N1 Transfusion of Nonautologous Red Blood Cells into Peripheral Vein, Percutaneous Approach (ICD-10-PCS; 2016-09-28)
PROC: 0SPB04Z Removal of Internal Fixation Device from Left Hip Joint, Open Approach (ICD-10-PCS; 2016-09-30)
PROC: 0QSC06Z Reposition Left Lower Femur with Intramedullary Internal Fixation Device, Open Approach (ICD-10-PCS; principal; 2016-09-30 14:30)
DX: S72.322A Displaced transverse fracture of shaft of left femur, initial encounter for closed fracture (principal); F03.91 Unspecified dementia, unspecified severity, with behavioral disturbance; F20.89 Other schizophrenia; L03.116 Cellulitis of left lower limb; D62 Acute posthemorrhagic anemia; I13.0 Hypertensive heart and chronic kidney disease with heart failure and stage 1 through stage 4 chronic kidney disease, or unspecified chronic kidney disease; I25.10 Atherosclerotic heart disease of native coronary artery without angina pectoris; E78.5 Hyperlipidemia, unspecified; L89.322 Pressure ulcer of left buttock, stage 2; K59.09 Other constipation; E10.22 Type 1 diabetes mellitus with diabetic chronic kidney disease; N18.3 Chronic kidney disease, stage 3 (moderate); W18.39XA Other fall on same level, initial encounter; Y93.89 Activity, other specified; Y92.098 Other place in other non-institutional residence as the place of occurrence of the external cause; Z78.1 Physical restraint status
CPT/HCPCS: 36415; 36430; 70450-TC; 71020-TC; 72192-TC; 73552-TC-LT; 73590-TC-LT; 73610-TC-LT; 73630-TC-LT; 76000-TC; 80048; 80053; 82947; 83735; 83880; 84484; 85025; 85027; 85610; 86922; 88300-TC; 93005; 93010; 93970-TC; 94760; 97161-GP; 99284-25; P9038; P9058